=== PATIENT | female | born 1950 | race Caucasian/White ===

== ENCOUNTER 2020-10-23 11:22 | Emergency (ER) | payer MEDICARE, SELFPAY ==
--- NOTE | 2020-10-23 11:35 | ED.SKABFB ---
HPI - Skin/Abscess/Foreign Bdy General Chief complaint: Skin/Abscess/Foreign Body Stated complaint: Boil on Groin Time Seen by Provider: 10/23/20 11:35 Source: patient and RN notes reviewed Mode of arrival: ambulatory Limitations: no limitations History of Present Illness HPI narrative: 70-year-old female presents to the [facility] with complaints of a red warm boil to the right labia. States there was a bump there for 2 to 3 months but the last couple days have become red and painful. Denies any treatment prior to arrival. No fevers. Related Data Home Medications Medication Instructions Recorded Confirmed budesonide-formoterol HFA 160 2 puff INHALATION Q12H 06/09/19 mcg-4.5 mcg/actuation aerosol inhaler cholecalciferol (vitamin D3) 25 1,000 unit PO DAILY tablet 06/09/19 mcg (1,000 unit) tablet cyanocobalamin (vitamin B-12) 500 500 mcg PO DAILY 06/09/19 mcg tablet Allergies Allergy/AdvReac Type Severity Reaction Status Date / Time diclofenac Allergy Unknown Rash Verified 05/13/19 14:17 Penicillins Allergy Unknown Dermatitis Verified 05/13/19 14:16 DICLOFENAC SODIUM Allergy Unknown Uncoded 03/23/14 12:25 Review of Systems Review of Systems: Narrative: CONSTITUTIONAL: Denies fever, chills, or sweats. CARDIOVASCULAR: Denies chest pain, palpitations, or edema. RESPIRATORY: Denies cough or dyspnea. GASTROINTESTINAL: Denies abdominal pain, nausea, vomiting, or diarrhea. SKIN: Denies rash or itching. Raised area right anterior labia MUSCULOSKELETAL: Denies back pain, joint pain, or myalgia. NEUROLOGIC: Denies headache, numbness, or weakness. PSYCHIATRIC: Denies anxiety or depression. All other systems reviewed are negative, except as documented in HPI. [facility] Past Medical History Medical History Age related osteoporosis Chronic low back pain with right-sided sciatica NSIP (nonspecific interstitial pneumonia) Osteoarthritis, multiple sites Primary hypertension Family History Family History Grandparent Family history of thyroid disease Family history of lung cancer, Onset Age: 60 Family history of malignant neoplasm of bone, Onset Age: 70 Family history of malignant neoplasm of uterus, Onset Age: 60 Mother Hypertension, Onset Age: 71 Cerebrovascular accident, Onset Age: 71 Sibling Hypertension Patient's brother is , Onset Age: 45 Family history of alcoholism Family history of hepatitis Family history of emphysema, Onset Age: 55 Father Family history of alcoholism Family history of lung cancer, Onset Age: 52 Comments At the time of my signature, I reviewed and agree with the nursing past medical, surgical, social, and family history. There is no relevant family history pertinent to the patient complaint. Exam Narrative: Exam Narrative: GENERAL: This is a well-nourished, well-developed patient, in no apparent distress. HEAD: normocephalic, atraumatic. EYES: PERRL. Sclera clear/white. Vision is grossly intact. EARS: External ears normal CARDIOVASCULAR: Regular rate and rhythm without murmurs, gallops, or rubs. RESPIRATORY: Clear to auscultation. Breath sounds equal bilaterally. No wheezes, rales, or rhonchi. GASTROINTESTINAL: Abdomen soft, non-tender, nondistended. SKIN: warm, intact with no rash, good texture and turgor. 1.5 cm red fluctuant area right anterior labia area redness extending up to 2-1/2 cm from center. Small scab noted over dried area that was raised and swollen. NEURO: awake, alert, and oriented to person, place and time. There were no obvious focal neurologic abnormalities. EXTREMITIES: No joint tenderness, effusion, or edema noted. Exam chaperoned by Tristan MACIAS : Female genitals images: 1. 1/2 cm fluctuant center with redness surrounding. Course Course Emergency Course: Explained the need for a need
[2020-10-23 11:50] VITALS: BP 168/80; PULSE 109; RESP 20; TEMP 36.3; O2SAT 99
--- NOTE | 2020-10-23 12:01 | PC.NURSE ---
wound culture ordered as wound culture per order provider
== END 2020-10-23 12:08 | disposition home or self-care (01) ==
PROVIDERS: Emergency Provider Nurse Practitioner; PCP Family Medicine
DX: N76.4 Abscess of vulva (principal); N76.2 Acute vulvitis; M19.90 Unspecified osteoarthritis, unspecified site; I10 Essential (primary) hypertension
CPT/HCPCS: 56405; 87070; 87077; 87147; 87181; 87186; 87205; 99213; G0463

== ENCOUNTER 2023-10-06 17:22 | Emergency (ER) | payer MEDICARE, SELFPAY ==
[2023-10-06 17:35] VITALS: BP 147/87; PULSE 86; RESP 16; TEMP 36.8; O2SAT 98
--- NOTE | 2023-10-06 17:53 | ED.URI ---
HPI - URI/Sore Throat General Chief Complaint: Upper Respiratory Infection Stated Complaint: Sore Throat Time Seen by Provider: 10/06/23 17:36 Source: patient and RN notes reviewed Mode of arrival: ambulatory Limitations: no limitations History of Present Illness HPI Narrative: Patient presents today complaining of a 2.5 week history of sore throat and nausea. Denies any additional symptoms to include congestion, rhinorrhea, fever, cough. She took a home COVID test that was negative. Currently rates her pain 5/10 and has been taking Tylenol without relief. States the pain is persistent and is worse at night. Patient has interstitial lung disease and takes CellCept. Related Data Home Medications Medication Instructions Recorded Confirmed cholecalciferol (vitamin D3) 25 1,000 unit PO DAILY 06/09/19 10/06/23 mcg (1,000 unit) tablet (Vitamin D3) cyanocobalamin (vitamin B-12) 500 500 mcg PO DAILY 06/09/19 10/06/23 mcg tablet (Vitamin B-12) timolol maleate 0.5 % once daily 1 drp LEFT EYE Q12H 11/30/22 10/06/23 eye drops mycophenolate mofetil 500 mg 1,500 mg PO Q12H 06/20/23 10/06/23 tablet (CellCept) Allergies Allergy/AdvReac Type Severity Reaction Status Date / Time diclofenac Allergy Unknown Rash Verified 10/06/23 17:25 Penicillins Allergy Unknown Dermatitis Verified 10/06/23 17:25 DICLOFENAC SODIUM Allergy Unknown Unknown Uncoded 10/06/23 17:25 Review of Systems Review of Systems: CONSTITUTIONAL: Denies body aches, fever, chills, or sweats. EYES: Denies visual changes, redness, or discharge. ENT: Denies rhinorrhea, congestion, or otalgia.+ sore throat CARDIOVASCULAR: Denies chest pain, palpitations, or edema. RESPIRATORY: Denies cough or dyspnea. GASTROINTESTINAL: Denies abdominal pain,vomiting, or diarrhea.+ nausea GENITOURINARY: Denies dysuria or hematuria. SKIN: Denies rash, itching, or wounds. MUSCULOSKELETAL: Denies back pain, joint pain, or myalgia. NEUROLOGIC: Denies headache, numbness, tingling, or weakness. PSYCH: Denies depression or anxiety. [facility] Past Medical History Medical History Age related osteoporosis At low risk for fall BMI 28.0-28.9,adult BMI 29.0-29.9,adult Breast cancer screening by mammogram normal mammogram 10/04/2022. Chronic low back pain with right-sided sciatica Colon cancer screening patient reports normal colonoscopy around 2008. Hyperplastic polyp descending colon 01/09/2023 with recheck in 10 years. COVID-19 (~07/15/23) tested positive 07/15/2023 Edema of both lower extremities Glaucoma (increased eye pressure) Hepatic steatosis AST 27, ALT 23 on 05/07/2023. Hyperkalemia (11/20/22) potassium elevated at 5.5 on 11/20/2022. Recheck. repeat potassium level 5.0 on 12/04/2022. Mixed hyperlipidemia (11/20/22) total cholesterol 205, triglycerides 189, HDL 47, LDL 125 on 11/20/2022. Total cholesterol 198, triglycerides 180, HDL 45, LDL 121 on 05/07/2023. NSIP (nonspecific interstitial pneumonia) Osteoarthritis, multiple sites Overweight (BMI 25.0-29.9) Primary hypertension Family History Family History Grandparent Family history of thyroid disease Family history of lung cancer, Onset Age: 60 Family history of malignant neoplasm of bone, Onset Age: 70 Family history of malignant neoplasm of uterus, Onset Age: 60 Mother Hypertension, Onset Age: 71 Cerebrovascular accident, Onset Age: 71 Sibling Hypertension Patient's brother is , Onset Age: 45 Family history of alcoholism Family history of hepatitis Family history of emphysema, Onset Age: 55 Father Family history of alcoholism Family history of lung cancer, Onset Age: 52 Social History Social History Smoking status: Never smoker Alcohol intake: never
== END 2023-10-06 18:15 | disposition home or self-care (01) ==
PROVIDERS: Emergency Provider Nurse Practitioner; PCP Family Medicine
DX: J02.9 Acute pharyngitis, unspecified (principal); M81.0 Age-related osteoporosis without current pathological fracture; H40.9 Unspecified glaucoma; K76.0 Fatty (change of) liver, not elsewhere classified; E78.2 Mixed hyperlipidemia; M15.9 Polyosteoarthritis, unspecified; I10 Essential (primary) hypertension; Z86.16 Personal history of COVID-19
CPT/HCPCS: 87081; 87880; 99213; G0463

== ENCOUNTER 2023-12-28 13:02 | Emergency (ER) | payer MEDICARE, SELFPAY ==
--- NOTE | ~2023-12-28 | XR_ITS ---
XR chest 2V 12/28/2023 13:56 Indication: Cough for one month Procedure: 2 view chest Comparison: 01/04/2009 Findings: Heart size normal. There is right upper lobe opacification, suspicious for pneumonia. Possi ble small left effusion versus pleural thickening. No edema or pneumothorax. There is left shoulder a rthroplasty. Impression: 1: Right upper lobe infiltrates which may represent pneumonia versus atelectasis/scarring. Reviewed, dictated and finalized at location B. Impression: 1: Right upper lobe infiltrates which may represent pneumonia versus atelectasi s/scarring.
[2023-12-28 13:16] VITALS: BP 125/68; PULSE 85; RESP 16; TEMP 37.3; O2SAT 98
--- NOTE | 2023-12-28 13:47 | ED.URI ---
HPI - URI/Sore Throat General Chief Complaint: Upper Respiratory Infection Stated Complaint: Sore Throat Time Seen by Provider: 12/28/23 13:38 Source: patient and RN notes reviewed Mode of arrival: ambulatory Limitations: no limitations History of Present Illness HPI Narrative: 73-year-old female presents with concern of for mouth pain, pain at the roof of her mouth, her tongue. She also reports cough and wheezing. She has history of autoimmune lung disease. She denies fever, aches, chills, sweats. She reports ear fullness MD elicited complaint: cough and sore throat Related Data Home Medications Medication Instructions Recorded Confirmed cholecalciferol (vitamin D3) 25 1,000 unit PO DAILY 06/09/19 12/28/23 mcg (1,000 unit) tablet (Vitamin D3) cyanocobalamin (vitamin B-12) 500 500 mcg PO DAILY 06/09/19 12/28/23 mcg tablet (Vitamin B-12) timolol maleate 0.5 % once daily 1 drp LEFT EYE Q12H 11/30/22 10/06/23 eye drops aspirin 81 mg tablet,delayed mg 12/28/23 release docusate sodium 100 mg capsule mg PO 12/28/23 hydrocodone 5 mg-acetaminophen 325 tablet 12/28/23 mg tablet Allergies Allergy/AdvReac Type Severity Reaction Status Date / Time diclofenac Allergy Unknown Rash Verified 12/28/23 13:11 Penicillins Allergy Unknown Dermatitis Verified 12/28/23 13:11 DICLOFENAC SODIUM Allergy Unknown Unknown Uncoded 12/28/23 13:11 Review of Systems Review of Systems: CONSTITUTIONAL: Denies malaise, chills, sweats, or fever. EYES: Denies visual changes, redness, or discharge. ENT: Denies rhinorrhea, congestion, sinus pain. Reports otalgia and sore throat. CARDIOVASCULAR: Denies chest pain, palpitations, or edema. RESPIRATORY: Reports cough. Denies dyspnea. GASTROINTESTINAL: Denies abdominal pain, nausea, vomiting, diarrhea SKIN: Denies rash or itching. MUSCULOSKELETAL: Denies myalgia. NEUROLOGIC: Denies headache. All systems reviewed & are unremarkable except as noted in HPI and below PMFSH Past Medical History Medical History (Updated 12/28/23 @ 14:24 by Michelle Camara NP) Age related osteoporosis At low risk for fall BMI 28.0-28.9,adult BMI 29.0-29.9,adult Breast cancer screening by mammogram normal mammogram 10/04/2022. Chronic low back pain with right-sided sciatica Colon cancer screening patient reports normal colonoscopy around 2008. Hyperplastic polyp descending colon 01/09/2023 with recheck in 10 years. COVID-19 (~07/15/23) tested positive 07/15/2023 Edema of both lower extremities Glaucoma (increased eye pressure) Hepatic steatosis AST 27, ALT 23 on 05/07/2023. Hyperkalemia (11/20/22) potassium elevated at 5.5 on 11/20/2022. Recheck. repeat potassium level 5.0 on 12/04/2022. Left rotator cuff tear patient had left reverse shoulder arthroplasty 11/21/2023. Mixed hyperlipidemia (11/20/22) total cholesterol 205, triglycerides 189, HDL 47, LDL 125 on 11/20/2022. Total cholesterol 198, triglycerides 180, HDL 45, LDL 121 on 05/07/2023. NSIP (nonspecific interstitial pneumonia) Osteoarthritis, multiple sites Overweight (BMI 25.0-29.9) Primary hypertension Family History Family History Grandparent Family history of thyroid disease Family history of lung cancer, Onset Age: 60 Family history of malignant neoplasm of bone, Onset Age: 70 Family history of malignant neoplasm of uterus, Onset Age: 60 Mother Hypertension, Onset Age: 71 Cerebrovascular accident, Onset Age: 71 Sibling Hypertension Patient's brother is , Onset Age: 45 Family history of alcoholism Family history of hepatitis Family history of emphysema, Onset Age: 55 Father Family history of alcoholism Family history of lung cancer, Onset Age: 52 Social History Social History Smoking status: Never smoker Alcohol intake: never
== END 2023-12-28 14:30 | disposition home or self-care (01) ==
PROVIDERS: Emergency Provider Nurse Practitioner; PCP Family Medicine
DX: J18.9 Pneumonia, unspecified organism (principal); K12.30 Oral mucositis (ulcerative), unspecified; M81.0 Age-related osteoporosis without current pathological fracture; E78.2 Mixed hyperlipidemia; M19.90 Unspecified osteoarthritis, unspecified site; I10 Essential (primary) hypertension; K76.0 Fatty (change of) liver, not elsewhere classified
CPT/HCPCS: 71046; 87081; 87880; 99213; G0463

== ENCOUNTER → 2024-03-25 14:16 | Outpatient (CLI) | payer MEDICARE, SELFPAY ==
--- NOTE | ~2024-03-25 | XR_ITS ---
XR knee LT min 4V 03/25/2024 14:41 Indication: Left knee pain Procedure: 4 views left knee Comparison: No prior studies for comparison. Findings: There is moderate tricompartment osteoarthritis. No fracture or traumatic malalignment. No significant joint effusion. No foreign bodies. Impression: 1: Moderate tricompartment osteoarthritis. Reviewed, dictated and finalized at location B. Impression: 1: Moderate tricompartment osteoarthritis.
== END ==
PROVIDERS: PCP Family Medicine; Visit Provider Family Medicine
DX: M17.12 Unilateral primary osteoarthritis, left knee (principal)
CPT/HCPCS: 73564

== ENCOUNTER 2025-03-20 09:26 | Outpatient (CLI) | payer MEDICARE, SELFPAY ==
--- OUTSIDE RECORDS SUMMARY | 2000-02-23 05:00 | XMS_ITS | Continuity of Care Document ---
Author Organization [facility] Address [address] [place] [address] Phone Care Team Providers Care Public Information Specialist Name Role Phone Jose OD, John Unavailable Unavailable Advance Directives Directive Yes / No Effective Date File Name No Information Encounters Encounter Description Practice Location Reason(s) For Visit Diagnoses Date Provider Providers Copied on Encounter [facility], [address], [place], [place], [id number], [place] tel:[phone] [facility] No Information Aug-0 3-200 0 Jose OD John. [address] , [address], [place], [address], [place]. tel:[phone] Family History Family Member Type Diagnosis Age At Onset No Information Payers Payer name Insurance type Covered democrat ID Authoriza tion(s) No Information Social History Type Description Quantity Date Captured Comments Sex Female Smoking Status No Information Chief Complaint And Reason For Visit No Information Reason For Referral Reason For Referral No Information History Of Present Illness Encounter Date Complaint History Of Prese nt Illness No Information Functional Status Date Functional Assessmen t No Information Instructions Date Instruction Additional Infor mation No Information Assessments Type Assessment Date No Information Patient Care Teams Name Effective Dates (start - stop) Status Members No Information
--- OUTSIDE RECORDS SUMMARY | 2025-03-20 09:32 | XMS_ITS | Encounter Summary ---
Author Organization [facility] Healthcare Address [address] [place] [address] Care Team Providers Care Cargo And Container Inspector Name Role Phone Pop Etienne MD Primary Care Provider [phone] Luisa Kingsley RN Unavailable Unavailabl e Sergio Cortez MD Unavailable [phone] Jonathon Ashraf MD Unavailable [phone] Encounter Details Date Type Department Care Team (Late st Contact Info) Description 02/17/2025 Results Follow-Up [facility] Medical Group Obstetrical Gynecology [address] [place] [address] Sergio Cortez MD [address] [facility] [place] [address] Screening Mammogram Bilateral W Valerio Social History Tobacco Use Types Packs/Day Years Used Date Smoking Tobacco: Never Smokeless Tobacco: Never Alcohol Use Standard Drinks/Week Comments Yes 0 (1 standard drink = 0.6 oz pur e alcohol) AUDIT-C Answer Date Recorded Q1: How often do you have a drink containing alc ohol? Never 11/21/2023 Average Number of Drinks Not on file 024 Frequency of Binge Drinking Not on file 07/2023 Hunger Vital Sign Answer Date Recorded Within the past 12 months, y ou worried that your food would run out before you got the money to buy more. Never true 11/11/19 23 Within the past 12 months, t he food you bought just didn't last and you didn't have money to get more. Never true 11/10/2022 Personal Safety Answer Date Recorded Have you ever been in or are you currently in a harmful physical or emotional relationship or is someone making you feel afraid or unsafe? 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 Gender Identity Not on file Sexual Orientation Not on file documented as of this encounter Plan of Treatment Not on file documented as of this encounter Visit Diagnoses Not on filedocumented in this encounter Care Teams Cargo And Container Inspector Relationship Specialty Start Date End Date Pop Etienne MD [address] [address] PCP - General 11/10/16 Luisa Kingsley RN Registered Nurse Pulmonary Disease 06/05/22 Sergio Cortez MD [address] [address] Consulting Physician Obstetrics and Gynecology 10/04/22 Jonathon Ashraf MD [address] [facility] [address] [place] [address] Consulting Physician Pulmonary Disease 02/03/25 documented as of this encounter
--- OUTSIDE RECORDS SUMMARY | 2025-03-20 09:32 | XMS_ITS | Encounter Summary ---
Author Organization [facility] Address [address] [place] [address] Phone Care Team Providers Care Spray Unit Feeder Name Role Phone Pop Etienne MD Primary Care Provider [phone] Luisa Kingsley RN Unavailable UnavailSergio Collazo MD Unavailable [phone] Jonathon Ashraf MD Unavailable [phone] Encounter Details Date Type Department Care Team (Latest Contact Info) Description 12/28/2023 Orders Only [facility] Scanning, Provider Social History Tobacco Use Types Packs/Day Years [...] making you feel afraid or unsafe? Denies 11/21/2023 Comments No Sex and Gender Information Value Date Recorded Sex Assigned at Not on file Legal Sex Female 11:54 PM MANAGER COMMUNICATION Gender Identity Not on file Sexual Orientation Not on file documented as of this encounter Plan of Treatment Not on file documented as of this encounter Procedures Procedure Name Priority Date/Time Associated Diagnosis Comments SCAN - RADIOLOGY/IMAGING 12/28/2023 documented in this encounter Results * SCAN - RADIOLOGY/IMAGING (12/28/2023) Anatomical Region Laterality Modality Other us Provider Scanning Final Result documented in this encounter Visit Diagnoses Not on filedocumented in this encounter Additional Health Concerns Infection Onset Date Last Indicated Resolved Time COVID: Suspected 07/06/2024 07/06/2024 07/06/2024 1:16 PM MANAGER COMMUNICATION COVID: Suspected 01/25/2025 01/25/2025 01/25/2025 1:09 PM CDT COVID: Suspected 02/03/2025 02/03/2025 02/03/2025 4:41 PM CDT documented as of this encounter Care Teams Spray Unit Feeder Relationship Specialty Start Date End Date Pop Etienne MD [address] [address] PCP - General 11/10/16 Luisa Kingsley RN Registered Nurse Pulmonary Disease 06/05/22 Sergio Cortez MD [facility] [address] [place] [address] Consulting Physician Obstetrics and Gynecology 10/04/22 Jonathon Ashraf MD [address] [facility] [address] IM PULMONARY [place] [address] Consulting Physician Pulmonary Disease 02/03/25 documented as of this encounter
--- OUTSIDE RECORDS SUMMARY | 2025-03-20 09:32 | XMS_ITS | Clinical Summary ---
Author Organization [facility] Care Team Providers Care In Home Nanny Name Role Phone Unavailable Primary Care Provider Unavailabl e Social History Tobacco Use Types Packs/Day Years Used Date Smoking Tobacco: Never Assessed Comments Unknown Sex and Gender Information Value Date Recorded Sex Assigned at Not on file Legal Sex Female 10:42 PM CDT Gender Identity Not on file Sexual Orientation Not on file Plan of Treatment Health Maintenance Due Date Last Done Comments Hepatitis C Virus (HCV) Screening 1950 Cologuard 1997 Colonoscopy 1997 Colorectal Cancer Screening 1997 Immunochemical Fecal Occult Blood 1997 Pneumococcal Immunization (50+ years) (1 of 1 - PCV) 2002 Zoster Immunization (2 of 3) 09/13/2014 07/19/2014 SARS-COV-2 Immunization (3 - season) 2024 05/27/2021, 09/24/2020 Influenza Immunization (#1) 03/23/202503/24, 05/15/2019, 04/30/2018, Additional history exists Respiratory Syncytial Virus (RSV) Immunization (Adult) (1 - 1-dose 75+ series) 2027 DTaP/Tdap/Td Immunization Discontinued 03/01/2018, TdaP Immunization Completed 03/01/2018 Hepatitis B Immunization Aged Out No longer eligible based on patient's age to complete this topic Human Papillomavirus (HPV) Immunization Aged Out No longer eligible based on patient's age to complete this topic Meningococcal Immunization (ACWY) Aged Out No longer eligible based on patient's age to complete this topic Rotavirus Immunization Aged Out No lo nger eligible based on patient's age to complete this topic
--- OUTSIDE RECORDS SUMMARY | 2025-03-20 09:32 | XMS_ITS | Clinical Summary ---
Author Organization [facility] Address [address] [place] [address] Care Team Providers Care Power Sewing Machine Operator Name Role Phone Pop Etienne MD Primary Care Provider [phone] Luisa Kingsley RN Unavailable Unavailabl e Sergio Cortez MD Unavailable [phone] Jonathon Ashraf MD Unavailable [phone] Allergies Active Allergy Reactions Criticality Noted Date Comments Sulfamethoxazole-Trimethoprim Rash Medium 2020 Diclofenac Sodium Dizziness,Rash Medium Penicillins Rash Medium Medications cyanocobalamin (Vitamin B-12) 500 mcg tabletIndicatio ns:Prevention of Vitamin B12 Deficiency Take 1 tablet (500 mcg total) by mouth counter intelligence agent before breakfast Active cholecalciferol (VITAMIN D-3) 5,000 unit tabletIndicatio ns:Vitamin D Deficiency Take 1 tablet (5,000 Units total) by mouth counter intelligence agent before breakfast 0 Active amLODIPine (NORVASC) 5 mg tabletIndicatio ns:Raynaud's Phenomenon,hype rtension Take 1.5 tablets (7.5 mg total) by mouth every evening 3 Active meloxicam (MOBIC) 15 mg tablet Take 1 tablet (15 mg total) by mouth 4 Active dorzolamide-susi oloL (Cosopt) 22.3-6.8 mg/mL ophthalmic solutionIndicat ions:open angle glaucoma Administer 1 drop into the left eye 2 (two) times a day 10 mL 11 4 Active azaTHIOprine (IMURAN) 50 mg tablet TAKE 3 TABLETS(150 MG) BY MOUTH DAILY 270 tablet 1 5 Active clindamycin (CLEOCIN) 300 mg capsuleIndicati ons:Prophylaxis , Surgical TAKE 2 CAPSULES BY MOUTH 1 HOUR PRIOR TO DENTAL PROCEDURE 2 capsule 2 5 Active peg 400-propylene glycol, PF, (SYSTANE ULTRA) 0.4-0.3 % dropperette Administer 1 drop into both eyes 2 (two) times a day as needed (dry / irritated eyes) Active metroNIDAZOLE (METROCREAM) 0.75 % creamIndication s:Acne Rosacea Apply a thin layer to face every night at bedtime 45 g 11 5 Active metroNIDAZOLE (METROCREAM) 0.75 % creamIndication s:Acne Rosacea Apply a thin layer to face every night at bedtime 45 g 11 4 025 Discontinu ed(Reorder ) famotidine (PEPCID) 40 mg tablet Take 1 tablet (40 mg total) by mouth daily 30 tablet 11 5 025 Discontinu ed(No longer taking - Do not display on AVS) Active Problems Problem Noted Date Diagnosed Date High risk medication use 02/27/2025 HTN (hypertension) 11/13/2023 Dry eye syndrome of both eyes 04/20/2022 Assessment & Plan (03/03/2025 3:24 PM CDT): New punctal plugs today (0.4 mm) Assessment & Plan (11/14/2022 11:33 AM CDT): Cont ats prn, notices significant improvement now with pplugs off PGA. Assessment & Plan (08/21/2022 7:17 PM MOBILITY SCOOTER REPAIRER): Increase ATs (rec pfats, vials) q2hr, lubricating radhames qhs Assessment & Plan (06/01/2022 1:16 PM MOBILITY SCOOTER REPAIRER): rec pfats prn Assessment & Plan (04/20/2022 12:12 PM CDT): Start PFATS TID+ both eyes (OU), if ni at f/u consider Xiidra Primary open angle glaucoma (POAG) of both eyes, mild stage 10/18/2021 Overview (04/12/2023): Normal RNFL thickness both eyes (OU) (02/13/22) Assessment & Plan (06/23/2024 5:06 PM MOBILITY SCOOTER REPAIRER): IOPs adequate, CPM - Cosopt BID OS Assessment & Plan (01/07/2024 4:50 PM CDT): IOP adequate, CPM - Cosopt BID OS Assessment & Plan (04/12/2023 5:31 PM CDT): IOPs adequate for optic nerve (ON) ,visual field (VF), RNFL, CPM Assessment & Plan (11/14/2022 11:35 AM CDT): Doing better off PGA, less irritation. Due to insurance switch to Timolol b.i.d. OS to see if this is covered by her insurance. Started on latanoprost 2020 due to increased intraocular pressure (IOP) left eye (OS) (24) and possible inferior defect on visual field (VF). Repeat testing next visit. Assessment & Plan (06/01/2022 1:17 PM MOBILITY SCOOTER REPAIRER): intraocular pressure (IOP) 24, discontinue PGA d/t orbitopathy. Normal RNFL thickness both eyes (OU) (09/2021). Start Timolol qam left eye (OS). Goal intraocular pressure (IOP) high teens. Assessment & Plan (12/21/2021 2:10 PM CDT): POAG OU Excellent response to Lumigan Patient still notes some stinging with application Start art tears 2-4 times a day Continue Bimatoprost every night. Probably will need a prior authorization. Consider brimonidine or brinzolamide if cannot get prior auth approved Assessment & Plan (10/18/2021 10:42 AM CDT): Stable IOP 11.5/ 13 OCT nerve normal OU Return in 6 months for HVF 24-2 Continue with latanoprost OU every night Lattice degeneration of left retina 08/18/2021 Assessment & Plan (03/03/2025 3:25 PM CDT): Patient was educated on the signs/sx retinal detachment, including flashes, floaters, and/or curtain over the vision. Recommend patient RTC immediately with the onset of any of these symptoms. Assessment & Plan (06/23/2024 5:07 PM MOBILITY SCOOTER REPAIRER): Rtc with fl/floaters, annual DFEx Assessment & Plan (08/18/2021 10:27 AM MOBILITY SCOOTER REPAIRER): Pt ed. Open angle with borderline findings, low risk, b ilateral 08/17/2020 Overview (04/20/2022): H/o retained lens material left eye (OS) with subsequent intraocular pressure (IOP) spike 40 Assessment & Plan (03/03/2025 3:25 PM CDT): Wedge of thinning left eye (OS), CPM Assessment & Plan (09/13/2023 11:07 AM MOBILITY SCOOTER REPAIRER): Great intraocular pressure (IOP) response since switching to Cosopt - Cont BID OS Assessment & Plan (06/21/2023 1:56 PM MOBILITY SCOOTER REPAIRER): Intraocular pressure (IOP) higher today (24) on one class, switch to Cosopt BID OS Assessment & Plan (08/21/2022 7:17 PM MOBILITY SCOOTER REPAIRER): CPM Assessment & Plan (04/20/2022 1:19 PM CDT): IOPs adeuayte,but experiencing adverse rxn to Rainaigan (reports having this also on Xal) worse over the last few weeks, will trial off drops for a few weeks, if intraocular pressure (IOP) much > 20, consider adding alternate class Assessment & Plan (12/06/2021 2:36 PM CDT): POAG OU Pigment on endothelium OS Reaction to latanoprost?? Discontinue Latanoprost OU Start Lumigan OU Return in 2 week for cornea check Preservative free tears 2-4 times a day Genteal gel at night Assessment & Plan (08/18/2021 10:26 AM MOBILITY SCOOTER REPAIRER): Intra-ocular pressure is low at goal on latanoprost. Continue q.h.s. both eyes (OU). She has an upcoming appointment with testing and to see Dr. Blankenship Assessment & Plan (04/20/2021 11:39 AM CDT): Return for intraocular pressure (IOP) check intraocular pressure (IOP) right eye (OD): 14 left eye (OS): 17 Nice response to Latanoprost Continue latanoprost at bedtime (QHS) Return in 6 months for repeat OCT and intraocular pressure (IOP) check. Assessment & Plan (02/08/2021 12:06 PM CDT): Intraocular pressure (IOP) elevated both eyes (OU) right eye (OD): 17 left eye (OS) : 24 Inferior arcuate defect both eyes (OU) with visual field (VF) today Started patient on Latanoprost both eyes (OU) Recheck intraocular pressure (IOP) in 2 months Assessment & Plan (08/17/2020 1:14 PM MOBILITY SCOOTER REPAIRER): Moderate CDRs with slight asymmetry. intraocular pressure normal range (IOP) left eye (OS)>OD. Normal RNFL thickness both eyes (OU). No FHx. Pseudophakia of both eyes 08/12/2019 Assessment & Plan (03/03/2025 3:24 PM CDT): Patient was educated on the intraocular lens (IOL) status. Follow. Assessment & Plan (06/23/2024 5:08 PM MOBILITY SCOOTER REPAIRER): Patient was educated on the intraocular lens (IOL) status. Follow. Assessment & Plan (04/12/2023 5:32 PM CDT): Patient was educated on the intraocular lens (IOL) status. Follow. Assessment & Plan (11/14/2022 11:33 AM CDT): Hx of retained lens fragment OS, s/p PPV. 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 Assessment & Plan (08/18/2021 10:28 AM MOBILITY SCOOTER REPAIRER): Pt ed on intraocular lens (IOL) status. Patient is very happy with mono vision. Follow. Assessment & Plan (08/17/2020 11:21 AM MOBILITY SCOOTER REPAIRER): status post (s/p) monovision correction, doing well Assessment & Plan (08/12/2019 3:00 PM MOBILITY SCOOTER REPAIRER): S/p CE/IOL OS. Hx of retained lens fragment OS, s/p PPV. NSIP (nonspecific interstitial pneumonia) 2018 Vaginal atrophy 04/03/2018 Osteoporosis 09/03/2017 History of vitrectomy 08/30/2016 Overweight with body mass index (BMI) 25.0-29.9 08/28/2016 Posterior vitreous detachment 10/21/2015 Shortness of breath 03/22/2015 Idiopathic interstitial pneumonia 03/22/2015 Compound nevus 10/14/2014 Cervical pain (neck) 01/29/2013 Chronic pain 01/07/2013 Osteoarthritis of cervical spine 01/07/2013 Bronchiectasis without complication Asthma ILD (interstitial lung disease) Resolved Problems Problem Noted Date Diagnosed Date Resolved Date SPK (superficial punctate keratitis), left 08/21/2024 03/03/2025 Complete tear of left rotator cuff 11/21/2023 02/03/2025 Tear of left rotator cuff 10/08/2023 Lab test positive for detect ion of COVID-19 virus 11/11/2021 02/03/2025 Optic nerve cupping of both eyes 01/14/2021 02/03/2025 Assessment & Plan (01/14/2021 9:08 AM CDT): Optic nerve head cupping Elevated intraocular pressure (IOP) in left eye (OS) Return for glaucoma evaluation Glaucoma suspect 01/13/2021 12/21/2021 Assessment & Plan (02/17/2021 9:35 AM CDT): - Reassuring Workman/RNFL previously Complex surgical course and on inhaled steroids so multiple reasons for higher IOP. With Xal IOP much improved. Recommend IOP < 21mmHg. If needs additional agents next step SLT F/U with Dr. Blankenship for glc monitoring - Q6 mo IOP check and yearly VF/OCT Assessment & Plan (01/13/2021 10:58 AM CDT): Glaucoma Suspect Asymmetry in intraocular pressure (IOP) right eye (OD): 13 left eye (OS) 22 Thick corneas Normal OCT today RTC for Galindo visual field (HVF) 24-2, gonioscopy, and repeat intraocular pressure (IOP), and DFE Corneal foreign body with re sidual material, left, subsequent encounter 08/17/2020 02/03/2025 Assessment & Plan (02/17/2021 9:33 AM CDT): - Referred to eval suture OS from prior Phaco (2005, Dr. Abbott) - Suture removed without complication Gel tears X 1 week Assessment & Plan (02/08/2021 12:09 PM CDT): Patient has suture from cataract surgery protruding from cornea. Cataract surgery was done with Dr. Major in 2016 This is the second episode of pain/FB sensation in the last month Refer patient to Dr. Dailey to see if suture can be removed. Started patient on latanoprost today for elevated IOP's Assessment & Plan (01/14/2021 9:06 AM CDT): Patient presents with raised epithelium and foreign body sensation. Corneal stain is in the area where previous corneal sutures were applied during cataract surgery and in the area where Dr. Ivory noted a previous foreign body 5 months ago. Patient may have entrapped suture material embedded in the cornea. Attempted to remove material in cornea today. Will recheck on follow up visit. Assessment & Plan (08/17/2020 11:31 AM MOBILITY SCOOTER REPAIRER): Removed small embedded foreign body (FB) superior temporal, near limbus, some residual staining. Acute conjunctivitis of left eye 08/12/2019 08/17/2020 Assessment & Plan (08/12/2019 2:59 PM MOBILITY SCOOTER REPAIRER): Increase use of ATs. Call with any worsening symptoms. Seborrheic keratosis, inflamed 05/30/2017 02/03/2025 Shoulder pain 11/23/2016 02/03/2025 Status post cervical spinal fusion 11/16/2016 02/03/2025 Pain of upper extremity 11/16/201601/20 Pseudophakia 08/30/2016 02/03/2025 Idiopathic osteoporosis 06/20/201601/20 Seborrheic keratoses 05/24/2016 025 Sebaceous cyst 05/24/2016 02/03/2025 Purpura 05/24/2016 02/03/2025 Cough 05/01/2016 02/03/2025 Retained lens matter in vitreous 03/21/2016 02/03/2025 Nuclear sclerotic cataract 10/21/2015 1 08/24/2023 Osteoarthritis of cervical s pine without myelopathy 11/06/2013 02/03/2025 Surgical follow-up care 06/10/201301/20 Rosacea 04/16/2013 02/03/2025 Lentigo 04/16/2013 02/03/2025 Migraine headache 01/07/2013 02/03/2025 Nail abnormalities 11/19/2012 Headache(784.0) 09/12/2012 02/03/2025 Pain in extremity 09/12/2012 02/03/2025 Encounter for preventive health examination 12/15/2008 02/03/2025 Encounters Date Type Department Care Team Description 03/09/2025 Telephone [facility] Medicine Pulmonary [address] [facility] [address]th [place] [address] [place] [address] Guerline Power, RN 03/06/2025 2:05 PM CDT Lab [facility] ([facility]) [address] [place] [address] ILD (interstitial lung disease) (HCC); High risk medication use 03/06/2025 12:23 PM CDT - 03/06/2025 11:59 PM CDT Hospital Encounter [facility] Medicine Pulmonary [facility] [address] [place] [address] ILD (interstitial lung disease) (HCC) Discharge Disposition: Discharge to home or self care 03/06/2025 Telephone [facility] Medicine Pulmonary [facility] 8th [place] [address] [place] [address] Guerline Power, RN 03/04/2025 Telephone [facility] Medicine Pulmonary [address] [place] [address] 8th [place] [address] [place] [address] Guerline Power, RN 03/03/2025 2:30 PM CDT Office Visit [facility] Medicine Ophthalmology [address] [facility] [address] [facility], [address] [facility] [place] [address] Paz Ivory, OD Pseudophakia of both eyes (Primary Dx); Dry eye syndrome of both eyes; Lattice degeneration of left retina; Open angle with borderline findings, low risk, bilateral 03/03/2025 2:10 PM CDT Imaging Exam [facility] Medicine Ophthalmology [facility] [address] [address] Open angle with borderline findings, low risk, bilateral; Encounter for observation for other suspected diseases and conditions ruled out 02/27/2025 10:15 AM CDT Office Visit [facility] Medicine Pulmonary [facility] 8th [place] [address] [place] [address] Jonathon Ashraf MD ILD (interstitial lung disease) (HCC) (Primary Dx); High risk medication use; Shortness of breath; Pneumonia of left lower lobe due to infectious organism 02/27/2025 9:00 AM CDT - 02/27/2025 11:59 PM CDT Hospital Encounter [facility] Medicine Pulmonary [address] [facility] [address] [place] [address] NSIP (nonspecific interstitial pneumonia) (HCC); Shortness of breath; High risk medication use Discharge Disposition: Discharge to home or self care 02/17/2025 Results Follow-Up [facility] Obstetrical Gynecology [address] [facility] [address] [place] [address] Sergio Cortez MD Screening Mammogram Bilateral W Valerio 02/16/2025 4:30 PM CDT - 02/16/2025 11:59 PM CDT Hospital Encounter [facility] Medical Office Bldg 1 [facility] [address] [facility] [address] [place] [address] Screening mammogram, encounter for Discharge Disposition: Discharge to home or self care 02/10/2025 [facility] [address] [facility] Advanced Medicine 8th [place] [address] [place] [address] Guerline Power, RN 02/09/2025 Telephone [facility] Medicine Pulmonary [address] [facility] 8th [place] [address] [place] [address] Guerline Power, RN 02/09/2025 [facility] [address] [facility] [address] [place] [address] Jonathon Ashraf MD 02/06/2025 10:22 AM CDT - 02/06/2025 11:59 PM CDT Hospital Encounter [facility] ([facility] [address] [place] [address] Jonathon Ashraf MD Shortness of breath; ILD (interstitial lung disease) (HCC) Discharge Disposition: Discharge to home or self care 02/04/2025 [facility] [address] [facility] Advanced Medicine 8th [place] [address] [place] [address] Guerline Power RN 02/03/2025 12:03 PM CDT - 02/03/2025 11:59 PM CDT Hospital Encounter [address] [address] Bronchiectasis with acute lower respiratory infection (HCC) Discharge Disposition: Discharge to home or self care 02/03/2025 11:00 AM CDT Office Visit [facility] Pulmonary [address] [facility] Advanced Medicine 8th [place] [address] [place] [address] Cecy Tavarez NP Bronchiectasis with acute lower respiratory infection (HCC) (Primary Dx); Interstitial lung disease (HCC); Age-related osteoporosis without current pathological fracture; High risk medication use; Immunization counseling; Poor appetite; Physical deconditioning 02/03/2025 10:19 AM CDT - 02/03/2025 11:59 PM CDT Hospital Encounter [facility] Pulmonary [address] [facility] [address] [place] [address] Shortness of breath; Idiopathic interstitial pneumonia (HCC) Discharge Disposition: Discharge to home or self care 02/03/2025 10:06 AM CDT - 02/03/2025 11:59 PM CDT Hospital Encounter [facility] [address] [place] [address] Shortness of breath; Idiopathic interstitial pneumonia (HCC) Discharge Disposition: Discharge to home or self care 02/02/2025 Telephone [facility] Pulmonary [address] [facility] Advanced Medicine 8th [place] [address] [place] [address] Guerline Power, RN 02/02/2025 Telephone [facility] Pulmonary [address] [facility] [address] [place] [address] [phone] Jonathon Ashraf MD 02/02/2025 [facility] [address] [facility] Advanced Medicine 8th [place] [address] [place] [address] Guerline Power, RN 01/28/2025 Orders Only [facility] Ophthalmology [address] [facility] 6th Floor, [address] [facility] [place] [address] Paz Ivory, OD Open angle with borderline findings, low risk, bilateral (Primary Dx); Encounter for observation for other suspected diseases and conditions ruled out 01/25/2025 1:27 PM CDT - 01/25/2025 2:29 PM CDT Emergency [facility] Emergency Department [address] [address] Acute cough (Primary Dx); Other fatigue; Sore throat Discharge Disposition: Discharge to home or self care 01/22/2025 8:35 AM CDT - 01/22/2025 11:59 PM CDT Hospital Encounter [facility] Di[facility] Imaging [address] [place] [address] Thumb pain, right Discharge Disposition: Discharge to home or self care 01/22/2025 8:30 AM CDT Office Visit [facility] Hand Surgery [address] [facility] [address] [place] [phone] Bren Clark MD Thumb pain, right (Primary Dx) 01/14/2025 Orders Only [facility] Dermatology [address] [place] [address] [address] [place] [address] Annalisa Evans MD Lentigines (Primary Dx) 01/13/2025 10:00 AM CDT Clinical Support [facility] Dermatology [address] [place] [address] [address] [place] [address] Encounter for cosmetic procedure (Primary Dx) 01/06/2025 9:51 AM CDT - 01/06/2025 11:59 PM CDT Hospital Encounter [facility] Radiology at [facility] [address] [place] [address] Status post orthopedic surgery, follow-up exam Discharge Disposition: Discharge to home or self care 01/06/2025 9:50 AM CDT Office Visit [facility] Orthopaedic Surgery [address] [facility] 1st Floor [address] [place] [address] Boy Denise MD Status post orthopedic surgery, follow-up exam (Primary Dx); Tear of left rotator cuff, unspecified tear extent, unspecified whether traumatic from Last 3 Months Immunizations Immunization Administration Dates Next Due Flucelvax Influenza Quad 05/06/2017 Hep A, Adult 03/18/2003,09/11/2002 Influenza, Quadrivalent, Hig h Dose, Preservative Free, Intrr 04/20/2020 Influenza, Trivalent, Adjuvanted, Intramuscular 05/15/2019 Influenza, Trivalent, High D ose, Split, Preservative Free, Intramuscular 04/03/2024,04/30/2018 Pneumococcal Conjugate PCV 13 08/30/2015 Pneumococcal Polysaccharide PPV23 03/11/2012 RSV Vaccine, Pref, Recombina nt, Subunit, Adjuvanted, PF, IM (Arexvy) 07/09/2023 Td, adsorbed 09/11/2002 Tdap 03/01/2018 ZOSTER LIVE 07/19/2014 Surgical History Surgery Date Site/Laterality Comments NEUROPLASTY / TRANSPOSITION MEDIAN NERVE AT CARPAL TUNNEL Neuroplasty Decompression Median Nerve At Carpal Tunnel - (Added by TW Conv) TOE SURGERY Hammertoe Operation (Each Toe) - (Added by TW Conv) EYE SURGERY Left vitrectomy CATARACT EXTRACTION W/ INTRAOCULAR LENS IMPLANT 01/14/2016 Right CEIOL OD / 1st eye with femtosecond LAS for distance correction (Grueloch / Yom) ROTATOR CUFF REPAIR 07/23/2016 - 07/22/2017 Right CARPAL TUNNEL RELEASE 07/23/2003 - 07/22/2004 Bilateral 2009 CERVICAL FUSION 07/23/2012 - 07/22/2013 COLONOSCOPY KNEE ARTHROSCOPY Right CATARACT EXTRACTION W/ INTRAOCULAR LENS IMPLANT 03/17/2016 Left CEIOL OS / 2nd eye with femtosecond LAS, anterior vitrectomy, and sulcus lens implantation for near correction ([place]uloch / Green) LENSECTOMY PARS PLANA 03/21/2016 Left 23G PPV OS + LenSx + AFx for retained lens fragment (Mathur / Hrisomalos) Medical History Medical History Date Comments Other interstitial lung dise ases of childhood Interstitial Lung Disease Of Childhood - (Added by TW Conv) Covid-19 Hypertension Interstitial lung disease (HCC) Mixed connective tissue disease Raynaud's disease NSIP (nonspecific interstiti al pneumonia) ([facility]) 08/26/2018 Corneal foreign body with re sidual material, left, subsequent encounter 08/17/2020 Cough 05/01/2016 Encounter for preventive hea lt examination 12/15/2008 Status post cervical spinal fusion 11/16/2016 Seborrheic keratoses 05/24/2016 Seborrheic keratosis, inflamed 05/30/2017 Rosacea 04/16/2013 Sebaceous cyst 05/24/2016 Shortness of breath 03/22/2015 Nail abnormalities 11/19/2012 Headache(784.0) 09/12/2012 Pain in extremity 09/12/2012 Pain of upper extremity 11/16/2016 Lentigo 04/16/2013 Migraine headache 01/07/2013 Osteoarthritis of cervical s pine without myelopathy 11/06/2013 Purpura 05/24/2016 Retained lens matter in vitreous 03/21/2016 Surgical follow-up care 06/10/2013 Idiopathic interstitial pneumonia 03/22/2015 Idiopathic osteoporosis 06/20/2016 Shoulder pain 11/23/2016 Optic nerve cupping of both eyes 01/14/2021 Lab test positive for detect ion of COVID-19 virus 11/11/2021 Tear of left rotator cuff 10/08/2023 Complete tear of left rotator cuff 11/21/2023 Pseudophakia, both eyes Monovisi on IOL (OD Distance, OS Near) - Dr. Abbott Hypertrichosis of both eyelids Dry eye syndrome, bilateral Optic cupping, bilateral C/D rat io OU (0.6) Primary open angle glaucoma (POAG) of both eyes, mild stage Follows w/ Dr. Ivory SPK (superficial punctate ke ratitis), left 08/21/2024 If recurs can try changing glc drop Family History Medical History Relation Name Comments Alcohol abuse Brother Family history of alcoholism - (Added by TW Conv) Alcohol abuse Father Family history of alcoholism - (Added by TW Conv) Cancer Father Family history of malignant neoplasm - (Added by TW Conv) Stroke Father Family history of cerebrovascular accident - (Added by TW Conv) Hypertension Mother Family history of hypertension - (Added by TW Conv) Stroke Mother Family history of cerebrovascular accident - (Added by TW Conv) Hip fracture Other PGM Alcohol abuse Sister Family history of alcoholism - (Added by TW Conv) Breast cancer Neg Hx Broken bones Neg Hx Kyphosis Neg Hx Osteoporosis Neg Hx Ovarian cancer Neg Hx Scoliosis Neg Hx Relation Name Status Comments Brother Father Mother Other PGM Sister Social History Tobacco Use Types Packs/Day Years Used Date Smoking Tobacco: Never Smokeless Tobacco: Never Tobacco Cessation:Counseling Given: Not Answered Alcohol Use Standard Drinks/Week Comments Yes 0 [...] on file Legal Sex Female 11:54 PM MOBILITY SCOOTER REPAIRER Gender Identity Not on file Sexual Orientation Not on file Obstetrics History Para Term AB IAB SAB Ectopic Multiple Livin g Live Births 2 2 2 Date Outcome GA Total Labor Labor/2nd/3rd Weight Sex Type Anes PTL Shazia A1 A5 Name Clin Term Term Comments 07/14/45 Last Filed Vital Signs Vital Sign Reading Time Taken Comments Blood Pressure 123/77 02/27/2025 9:50 AM CDT Pulse 85 02/27/2025 9:50 AM CDT Temperature 36.6 C (97.9 F) 02/27/2025 9:50 AM CDT Respiratory Rate 18 02/27/2025 9:50 AM CDT Oxygen Saturation 97% 02/27/2025 9:50 AM CDT Inhaled Oxygen Concentration - - Weight 75.3 kg (166 lb) 02/27/2025 9:50 AM CDT Height 162.6 cm (5' 4) 02/27/2025 9:50 AM CDT Body Mass Index 28.49 02/27/2025 9:50 AM CDT Plan of Treatment Health Maintenance Due Date Last Done Comments Colon Cancer Screening-Colonoscopy 1950 Depression Screening 1950 Hepatitis C Screening 1950 Hepatitis B Screening 1970 Zoster Vaccine (1 of 2) 09/13/2014 07/19/2014 Pneumococcal vaccine 65+ (3 of 3 - PCV20 or PCV21) 03/11/2017 08/30/2015, 03/11/2012 Covid-19 Vaccine (3 - 2023-2 5 season) 2024 05/27/2021, 09/24/2020 Well Visit 65+ 08/10/2024 08/10/2023, 05/24, 06/10/2021 Fall Risk Assessment 11/20/2024 11/21/2023 Influenza Vaccine (#1) 2025 , 04/20/2020, 05/15/2019, Additional history exists Breast Cancer Screening-Mammogram 02/16/2026 02/16/2025, 10/24/2023, 10/04/2022, Additional history exists Osteoporosis Screening-Bone Density Scan 12/01/2026 12/01/2024, 11/19/2023, 10/02/2022, Additional history exists DTaP/Tdap/Td Vaccine (2 - Td or Tdap) 03/01/2028 03/01/2018, 09/11/2002 Medical Devices Implanted Type Area Hearing Instrument Specialist Device Identifier Shelf Expiration Date Model / Serial / Lot Cervical Fusion Neck [employer] Tornier Aequalis Perform 15mm Press Fit Long Post Shoulder [id number] - [id number] Implanted:Qty: 1 on 11/21/2023 at [facility] Left: Shoulder [employer] 06/04/2028 [id number] / [id number] / [employer] Tornier Aequalis Perform 25mm Lateralize Augment Reverse Shoulder [id number] - [id number] Implanted:Qty: 1 on 11/21/2023 at [facility] Left: Shoulder [employer] 09/16/2028 [id number] / [id number] / [employer] Tornier Aequalis Perform 36mm Reverse Shoulder Standard Sphere [id number] - [id number] Implanted:Qty: 1 on 11/21/2023 at [facility] Left: Shoulder [employer] 09/17/2028 [id number] / [id number] / [employer] Tray Stem Humeral Shoulder Reverse Long Size 2 Plus Perform [id number] - [id number] Implanted:Qty: 1 on 11/21/2023 at [facility] Left: Shoulder [employer] 08/05/2028 [id number] / [id number] / [employer] Insert Humeral 10 Degree Reverse Size 1/2 +0 Perform 36mm Combination [id number] - [id number] Implanted:Qty: 1 on 11/21/2023 at [facility] Left: Shoulder [employer] 01/17/2028 [id number] / [id number] / [employer] Aequalis Perform Reversed 5mm 38mm Peripheral Glenoid Screw [id number] - [id number] Implanted:Qty: 1 on 11/21/2023 at [facility] Left: Shoulder [employer] [id number] / / [employer] Aequalis Perform Reversed 5mm 26mm Peripheral Glenoid Screw [id number] - [id number] Implanted:Qty: 1 on 11/21/2023 at [facility] Left: Shoulder [employer] [id number] / / Procedures Procedure Name Priority Date/Time Associated Diagnosis Comments EGFR Routine 03/06/2025 1:56 PM CDT ILD (interstitial lung disease) (HCC) High risk medication use BASIC METABOLIC PANEL Routine 03/06/2025 1:56 PM CDT ILD (interstitial lung disease) (HCC) High risk medication use PULMONARY FUNCTION TEST (PFT) Routine 03/06/2025 1:20 PM CDT ILD (interstitial lung disease) (HCC) COMPREHENSIVE METABOLIC PANEL Routine 03/04/2025 2:38 PM CDT ILD (interstitial lung disease) (HCC) High risk medication use OCT, RETINA - OU - BOTH EYES Routine 03/03/2025 2:09 PM CDT Open angle with borderline findings, low risk, bilateral Encounter for observation for other suspected diseases and conditions ruled out OCT, OPTIC NERVE - OU - BOTH EYES Routine 03/03/2025 2:09 PM CDT Open angle with borderline findings, low risk, bilateral COMPREHENSIVE METABOLIC PANEL Routine 03/03/2025 11:00 AM CDT NSIP (nonspecific interstitial pneumonia) (HCC) Pulmonary fibrosis High risk medication use CBC WITH AUTO DIFFERENTIAL Routine 03/03/2025 11:00 AM CDT NSIP (nonspecific interstitial pneumonia) (HCC) Pulmonary fibrosis High risk medication use PULMONARY FUNCTION TEST (PFT) Routine 02/27/2025 9:38 AM CDT NSIP (nonspecific interstitial pneumonia) (HCC) Shortness of breath High risk medication use SCREENING MAMMOGRAM BILATERAL W VALERIO Schedule Routine, Read Routine (OP Routine) 02/16/2025 4:52 PM CDT Screening mammogram, encounter for CT CHEST HIGH RESOLUTION WO CONTRAST Schedule Routine, Read Routine (OP Routine) 02/06/2025 11:20 AM CDT Shortness of breath ILD (interstitial lung disease) (HCC) RESPIRATORY PATHOGEN PANEL STAT 02/03/2025 2:31 PM CDT Bronchiectasis with acute lower respiratory infection (HCC) PULMONARY FUNCTION TEST (PFT) Routine 02/03/2025 10:33 AM CDT Shortness of breath Idiopathic interstitial pneumonia (HCC) XR CHEST PA LATERAL 2 VIEWS Routine 02/03/2025 10:13 AM CDT Shortness of breath Idiopathic interstitial pneumonia (HCC) INFLUENZA A/B, RSV, AND COVID-19 PCR STAT 01/25/2025 12:15 PM CDT XR FINGER THUMB RIGHT Schedule Routine, Read Routine (OP Routine) 01/22/2025 8:43 AM CDT Thumb pain, right OH INJECTION 1 TENDON SHEATH/LIGAMENT APONEUROSIS Routine 01/22/2025 8:30 AM CDT Thumb pain, right COMPREHENSIVE METABOLIC PANEL Routine 01/21/2025 9:32 AM CDT NSIP (nonspecific interstitial pneumonia) (HCC) Pulmonary fibrosis (HCC) High risk medication use CBC WITH AUTO DIFFERENTIAL Routine 01/21/2025 9:31 AM CDT NSIP (nonspecific interstitial pneumonia) (HCC) Pulmonary fibrosis (HCC) High risk medication use XR SHOULDER LEFT 2 OR MORE VIEWS Schedule Routine, Read Routine (OP Routine) 01/06/2025 9:58 AM CDT Status post orthopedic surgery, follow-up exam DEXA TBS AXIAL SKELETON BONE DENSITY 1 OR MORE SITES Schedule Routine, Read Routine (OP Routine) 12/01/2024 1:21 PM CDT Age-related osteoporosis without current pathological fracture from Last 3 Months or Most Recently Relevant to Health Maintenance Results * eGFR (03/06/2025 1:56 PM CDT) eGFR >90 >=60 mL/min/1. 73 m2 Comment: Interpretive Data Reference Interval Normal >/= 90 mL/min/1.73m2 Mildly decreased* 60 - 89 mL/min/1.73m2 Mildly to moderately decreased 45 - 59 mL/min/1.73m2 Moderately to severely decreased 30 - 44 mL/min/1.73m2 Severely decreased 15 - 29 mL/min/1.73m2 Kidney Failure < 15 mL/min/1.73m2 *Relative to young adult level Estimated glomerular filtration rate is determined by the 2020 CKD-EPI equation recommended by the National Kid[employer] (A Unifying Approach to GFR Estimation: Recommendations of the NKF-ASK Task Force on Reassessing the Inclusion of Race in Diagnosing Kidney Disease, JASN 2020). The CKD-EPI equation should not be used for patients with unstable renal function and has not been validated in children and those over 70. Current interpretive data was last reviewed 2021. Blood 03/06/2025 1:56 PM CDT 03/06/2025 2:46 PM CDT Jonathon Ashraf MD LAB BLOOD ORDERABLES Final Res ult Performing Organization Address [facility] Co de Phone Number [facility] Department [place] [address] * Basic metabolic panel (03/06/2025 1:56 PM CDT) Pathologist [facility] Sodium 138 135 - 145 mmol/L Potassium, pl 4.2 3.3 - 4.9 mmol/L [facility] Chloride 102 97 - 110 mmol/L [facility] CO2 26 22 - 32 mmol/L [facility] Anion gap 10 2 - 15 mmol/L [facility] BUN 16 6 - 25 mg/dL [facility] Creatinine 0.62 0.60 - 1.10 mg/dL [facility] Glucose 82 70 - 199 mg/dL [facility] Comment: Interpretive Data Fasting glucose >/= 126 mg/dl is diagnostic for diabetes. Fasting is defined as no caloric intake for at least 8 hours. Fasting glucose between 100 mg/dl to 125 mg/dl is diagnostic of prediabetes. In a patient with classic symptoms of hyperglycemia or hyperglycemic crisis, a random glucose >/= 200 mg/dl is diagnostic for diabetes. In the absence of unequivocal hyperglycemia, results should be confirmed by repeat testing. The classification and Diagnosis of Diabetes Diabetes Care 2021; 46: S19-S40. Current interpretive data was last revised 2022. Calcium 9.7 8.5 - 10.3 mg/dL [facility] Blood 03/06/2025 1:56 PM CDT 03/06/2025 2:40 PM CDT Jonathon Ashraf MD LAB BLOOD ORDERABLES Final Res ult Performing Organization Address [facility] Co de Phone Number [facility] Department [place] [address] * Pulmonary Function Test - (03/06/2025 1:20 PM CDT) Pathologist [facility] FIO2 % 15.00 % [facility] PaO2 59.0 mmHg [facility] PaCO2 35.0 mmHg [facility] pH 7.45 [facility] A-aDO2 POC 4.0 mmHg [facility] METHGB % 0.2 % [facility] COHb POC 1.5 % [facility] HCO3 24.3 mEq/L [facility] Anatomical Region Laterality Modality PFT 03/06/2025 12:5 0 PM CDT Narrative 03/06/2025 4:19 PM CDT Table formatting from the original result was not included. [facility] Division of Pulmonary & Critical Care Medicine [address] [place] [address]; [place] 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1950 Diagnosis: ILD TIME FiO2 SpO2 HR LEDY BP ADDED FiO2 COMMENTS Rest: 0.21 99 62 0 126/70 Breathing 15% Oxygen: Draw ABG after 20 minutes or when SpO2 drops below 85% 2 0.15 95 63 0 4 0.15 93 63 0 6 0.15 96 65 0 8 0.15 97 65 0 125/76 10 0.15 96 64 0 12 0.15 94 65 0 14 0.15 93 63 0 16 0.15 91 65 0 18 0.15 95 67 0 20 0.15 94 65 0 Recovery: 97 65 0 110/75 97 66 0 *Ledy rate of perceived exertion (1-10 dyspnea scale) Ari, CHEST 2003; 123:1408 HAST Test Summary: Comments: Interpretation: Breathing room air, SpO2 is normal at rest and while breathing a gas mixture simulating an altitude of approximately 5,000-10,000 feet (FiO2 = 0.15) SpO2 (falls but remains normoxemic and acceptable). On this basis, SpO2 is adequate at rest breathing room air at sea level and during air travel. Recommendation: On the basis this data, supplemental oxygen use during commercial jet travel or at altitude is not required . Denys Castaneda M.D. PFT performed at:->[facility] Adult PFT Lab- [facility]-8D Procedure:->High Altitude Pulmonary Function Test Interpretation ARTERIAL BLOOD GAS: The pH and pCO2 are normal. The arterial pO2 is below the lower limit of normal for the patient's age at rest. O2 saturation measured by oximetry is adequate at rest. Impression: There is no impairment of gas exchange at rest by ABG. Oxygen levels are adequate at 15% FiO2. The attending pulmonary physician certifies a physician presence in the [facility] during the administration of aerosolized bronchodilator. The attending pulmonary physician certifies that he/she has reviewed and interpreted the graphic and numerical data of this pulmonary function study and agrees with the written final report. The lower limit of normal for PaO2 and %HbO2 is age dependent. However, the [facility] Pulmonary Function Laboratory defines hypoxemia as a PaO2 <56 mm Hg or a %HbO2 <89%. Starting on July of 2024 the [facility] Pulmonary Function Laboratory utilizes race neutral GLI Global normative equations. Jonathon Ashraf MD PFT ORDERABLES Final Result * (ABNORMAL) Comprehensive metabolic panel (03/04/2025 2:38 PM CDT) Glucose 87 70 - 99 mg/dL [facility] - 01 BUN 16 8 - 27 mg/dL [facility] - 01 Creatinine, Serum 0.84 0.57 - 1.00 mg/dL [facility] - 01 eGFR 74 >59 mL/min/1.7 3 [facility] - 01 BUN/creat ratio 19 12 - 28 [facility] - 01 Sodium 138 134 - 144 mmol/L [facility] - 01 Potassium, sr 5.3(H) 3.5 - 5.2 mmol/L [facility] - 01 Chloride 99 96 - 106 mmol/L [facility] - 01 CO2 26 20 - 29 mmol/L [facility] - 01 Calcium 9.9 8.7 - 10.3 mg/dL [facility] - 01 Protein, sr 7.4 6.0 - 8.5 g/dL [facility] - 01 Albumin 4.4 3.8 - 4.8 g/dL [facility] - 01 Globulin, Total 3.0 1.5 - 4.5 g/dL [facility] - 01 Bilirubin, Total 0.9 0.0 - 1.2 mg/dL [facility] - 01 Alk phos 89 44 - 121 IU/L [facility] - 01 AST 32 0 - 40 IU/L [facility] - 01 ALT 21 0 - 32 IU/L [facility] - 01 Blood 03/04/2025 2:38 PM CDT 03/04/2025 Narrative [facility] - 03/05/2025 7:09 AM CDT Performed at: - [address] [id number] Distribution Transformer Assembler: Deangelo Vicente PhD, Phone: [phone] Jonathon Ashraf MD LAB BLOOD ORDERABLES Final Res ult [facility] - 01 * OCT, Retina - OU - Both Eyes (03/03/2025 2:09 PM CDT) Anatomical Region Laterality Modality Head Other Narrative 03/03/2025 2:53 PM CDT Right Eye Quality was good. Scan locations included subfoveal. Findings include normal observations. Left Eye Quality was good. Scan locations included subfoveal. Findings include normal observations. Notes Ganglion cell layer (GCL); normal thickness both eyes (OU) Paz Ivory OD OPHTH TOMOGRAPHY Final Res ult * OCT, Optic Nerve - OU - Both Eyes (03/03/2025 2:09 PM CDT) RNFL OS 76 micrometers [facility] RNFL OD 84 micrometers [facility] Anatomical Region Laterality Modality Head Other Narrative 03/03/2025 2:53 PM CDT Right Eye Reliability was good. Temporal thickness was normal. Superior thickness was normal. Nasal thickness was normal. Inferior thickness was normal. Average RNFL thickness 84 micrometers. Left Eye Reliability was good. Temporal thickness was normal. Superior thickness was normal. Nasal thickness was normal. Inferior thickness was normal. Average RNFL thickness 76 micrometers. Notes Right eye (OD) normal Left eye (OS) borderline thin inf wedge Paz Ivory OD OPHTH TOMOGRAPHY Final Res ult * (ABNORMAL) CBC with auto differential (03/03/2025 11:00 AM CDT) [facility] WBC 8.6 3.4 - 10.8 x10E3/uL [facility] - 01 RBC 4.46 3.77 - 5.28 x10E6/uL [facility] - 01 Hgb 13.9 11.1 - 15.9 g/dL [facility] - 01 Hct 42.5 34.0 - 46.6 % [facility] - 01 MCV 95 79 - 97 fL [facility] - 01 MCH 31.2 26.6 - 33.0 pg [facility] - 01 MCHC 32.7 31.5 - 35.7 g/dL [facility] - 01 Rdw 13.1 11.7 - 15.4 % [facility] - 01 Platelets 428 150 - 450 x10E3/uL [facility] - 01 Neutrophils pct 54 Not Estab. % [facility] - 01 Lymphs pct 27 Not Estab. % [facility] - 01 Monocytes pct 11 Not Estab. % [facility] - 01 Eosinophils pct 6 Not Estab. % [facility] - 01 Basophil pct 2 Not Estab. % [facility] - 01 Neutrophil abs 4.7 1.4 - 7.0 x10E3/uL [facility] - 01 Lymphs (Absolute) 2.3 0.7 - 3.1 x10E3/uL [facility] - 01 Monocyte abs 0.9 0.1 - 0.9 x10E3/uL [facility] - 01 Eosinophils, abs 0.5(H) 0.0 - 0.4 x10E3/uL [facility] - 01 Basophils, abs 0.1 0.0 - 0.2 x10E3/uL [facility] - 01 Immature Granulocytes 0 Not Estab. % [facility] - 01 Immature Grans (Abs) 0.0 0.0 - 0.1 x10E3/uL [facility] - 01 Blood 03/03/2025 11:0 0 AM CDT 03/03/2025 Narrative [facility] - 03/04/2025 12:07 AM CDT Performed at: [address] [place], [place] [id number] Distribution Transformer Assembler: Deangelo Vicente PhD, Phone: [phone] us Jonathon Ashraf MD LAB BLOOD ORDERABLES Final Res ult [facility] - 01 * (ABNORMAL) Comprehensive metabolic panel (03/03/2025 11:00 AM CDT) Pathologist [facility] Glucose 91 70 - 99 mg/dL [facility] - 01 BUN 12 8 - 27 mg/dL [facility] - 01 Creatinine, Serum 0.66 0.57 - 1.00 mg/dL [facility] - 01 eGFR 93 >59 mL/min/1.7 3 [facility] - 01 BUN/creat ratio 18 12 - 28 [facility] - 01 Sodium 138 134 - 144 mmol/L [facility] - 01 Potassium, sr 5.6(H) 3.5 - 5.2 mmol/L [facility] - 01 Chloride 99 96 - 106 mmol/L [facility] - 01 CO2 22 20 - 29 mmol/L [facility] - 01 Calcium 10.0 8.7 - 10.3 mg/dL [facility] - 01 Protein, sr 7.5 6.0 - 8.5 g/dL [facility] - 01 Albumin 4.3 3.8 - 4.8 g/dL [facility] - 01 Globulin, Total 3.2 1.5 - 4.5 g/dL [facility] - 01 Bilirubin, Total 1.5(H) 0.0 - 1.2 mg/dL [facility] - 01 Alk phos 82 44 - 121 IU/L [facility] - 01 AST 41(H) 0 - 40 IU/L [facility] - 01 ALT 16 0 - 32 IU/L [facility] - 01 Blood 03/03/2025 11:0 0 AM CDT 03/03/2025 Narrative [facility] - 03/04/2025 1:07 AM CDT Performed at: [facility] - [facility] [address] [place], [place] [id number] Distribution Transformer Assembler: Deangelo Vicente PhD, Phone: [phone] us Jonathon Ashraf MD LAB BLOOD ORDERABLES Final Res ult [facility] - 01 * Pulmonary Function Test - (02/27/2025 9:38 AM CDT) FVC PRE 1.39 L [facility] FVC %PRE PRED 51 % [facility] FEV1 PRE 1.23 L [facility] FEV1 %PRE PRED 58 % [facility] FEV1/FVC PRE 88.4 % [facility] DLCO PRE 8.7 ml/min/mmH g [facility] DLCO %PRE PRED 46 % [facility] Anatomical Region Laterality Modality PFT 02/27/2025 9:12 AM CDT Narrative 02/27/2025 1:46 PM CDT Table formatting from the original result was not included. [facility] Division of Pulmonary & Critical Care Medicine [address] [place] [address]; [place] [facility]; [place] [address]; [phone] Pulmonary Function Laboratory Pulmonary Stress Test Simple/Oxygen Assessment Patient: Jono Cooley Date: 02/27/2025 : 1950 Ht: 64 IN Wt: 166 LBS Time (min) Distance (ft)/ Velez O2 L/M SpO2 HR Ledy* BP FEV1 % Pred Rest: RA 98 84 0 114/69 1.23 58 % Walk/Bike: 1 RA 94 104 0 2 RA 92 108 0.5 3 RA 92 110 0.5 4 RA 91 111 0.5 5 RA 91 112 1 6 min 0 sec RA 91 113 2 Recovery: 1 RA 95 100 0 125/64 1.24 59% 3 RA 99 90 0 *Ledy rate of perceived exertion (1-10 dyspnea scale) Ari, CHEST 2003; 123:1408 Walk Test Summary: Six Minute Walk Distance: 1440 ft Six-minute Walk Work [distance (m) x body wt (kg)]: 65536 kg.m (normal >60,000kg.m) Oxygen required to maintain SpO2 greater than 90% during six minutes of walkin L/M Comments: O2A-0 STOPS Interpretation: Breathing room air, SpO2 is normal at rest and during exercise sufficient to increase pulse, SpO2 falls but remains normoxemic . On this basis, SpO2 is adequate at rest breathing room air and while walking breathing room air. This level of exercise is associated with no significant change of FEV1. By signing this report, the attending pulmonary physician certifies that he/she has personally reviewed and interpreted the graphic and numerical data associated with this pulmonary function study and has reviewed and /or edited a preliminary draft report and agrees with the written final report. PFT performed at:->[facility] Adult PFT Lab- [facility]8D Procedure:->Oxygen Assessment Titration Procedure:->Spirometry Procedure:->DLCO DLCO:->Spirometry Pulmonary Function Test Interpretation SPIROMETRY: The FEV1 to FVC ratio is normal. The FEV1 and FVC are reduced in a pattern suggestive of a restrictive abnormality. The inspiratory loop is appropriate for the expiratory flow abnormality. DLCO: The diffusing capacity is decreased. The diffusing capacity corrected for hemoglobin level (DLCO ADJ) is within normal limits. Impression: There is a moderate restrictive ventilatory defect. However, measurement of lung volumes is suggested to confirm this if clinically indicated. There is a moderate impairment of alveolar gas exchange by DLCO. Compared with most recent study, there has been significant interval improvement of the FEV1 & FVC. The attending pulmonary physician certifies a physician presence in the [facility] Suite during the administration of aerosolized bronchodilator. The attending pulmonary physician certifies that he/she has reviewed and interpreted the graphic and numerical data of this pulmonary function study and agrees with the written final report. The lower limit of normal for PaO2 and %HbO2 is age dependent. However, the [facility] Pulmonary Function Laboratory defines hypoxemia as a PaO2 <56 mm Hg or a %HbO2 <89%. Starting on July of 2024 the [facility] Pulmonary Function Laboratory utilizes race neutral GLI Global normative equations. us Jonathon Ashraf MD PFT ORDERABLES Final Result * Screening Mammogram Bilateral W Valerio (02/16/2025 4:52 PM CDT) Anatomical Region Laterality Modality Breast Bilateral Mammography Impressions 02/16/2025 5:03 PM CDT BI-RADS ATLAS category (overall): 1 - Negative There is no mammographic evidence of malignancy. A 1 year screening mammogram is recommended. The patient has been or will be contacted. We recommend annual screening mammography for women at average risk of breast cancer beginning at age 40, based on guidelines of the [employer] (ACR Practice Parameter for the Performance of Screening and Diagnostic Mammography) and [employer]. For women with and elevated risk of breast cancer, please refer to the ACR Practice Parameter for specific screening recommendations. The patient will be entered into a reminder system with a target due date of 1 year for her next screening exam. Narrative 02/16/2025 5:03 PM CDT Screening Mammogram Bilateral W Valerio: 02/16/25 The study was acquired using full field digital technology and interpreted from soft copy. 2D digital mammographic views, as well as 3D digital tomosynthesis were performed in the CC and MLO projections. CLINICAL: Screening mammogram, encounter for. No relevant medical history has been documented for this patient. History of breast cancer in Neg Hx. No comparisons were made when reading this study. BREAST TISSUE: The breasts are almost entirely fatty. FINDINGS: There is no new suspicious finding in either breast on mammogram. us Self Screening Mammogram IMG MAMMO PROCEDURES Fi nal Result * CT Chest High Resolution WO Contrast (02/06/2025 11:20 AM CDT) Anatomical Region Laterality Modality Chest N/A Computed Tomogra phy 02/06/2025 12:0 3 PM CDT Impressions 02/06/2025 5:31 PM CDT 1. No significant interval change in findings of interstitial lung disease with pattern most suggestive of connective tissue disease related interstitial lung disease versus hypersensitivity pneumonitis. 2. New cluster of peribronchovascular tree-in-bud nodularity in the left lower lobe may represent superimposed aspiration versus an infectious process. Other benign-appearing pulmonary nodules are stable from prior. Dictated by: Yusef Holder M.D. The radiology attending physician has personally reviewed this study, and had reviewed and/or edited this written report and agrees with it. Electronically signed by: Chico Crowley M.D. Narrative 02/06/2025 5:31 PM CDT EXAMINATION: Computed tomography of the chest without intravenous contrast HISTORY: Interstitial lung disease thought to be either hypersensitivity pneumonitis or interstitial pneumonia with autoimmune features. TECHNIQUE: Transaxial computed tomographic images of the chest were obtained without intravenous contrast according to the standard protocol. COMPARISON: 07/06/2024 CT FINDINGS: There are unchanged scattered sub-6 mm pulmonary nodules in both lungs, some of which appear partially calcified. This includes an unchanged 4 mm nodule in the right middle lobe (series 3 image 75), an unchanged 5 mm nodule in the left upper lobe (series 3 image 58), an unchanged 3 mm nodule in the left lower lobe (series 3 image 81), and an unchanged 5 mm nodule in the left lower lung adjacent to the fissure (series 3 image 62). There is been development of a cluster of peribronchovascular tree-in-bud nodules in the left lower lobe, for example at table position -1273.1). There is redemonstration of bilateral reticulation and traction bronchiectasis with bilateral upper lobe involvement, not significantly changed in distribution or severity when compared to the prior exam. There is no definite honeycombing. On expiration phase, there is scattered mild air trapping in both lungs. No pleural effusion, pulmonary edema, pneumonia, or pneumothorax. No supraclavicular, axillary, mediastinal, or hilar lymphadenopathy. Heart size unchanged. No pericardial effusion. There is coronary artery atherosclerosis. There is a small hiatal hernia. There is cholelithiasis without acute cholecystitis. No other acute findings in the imaged upper abdomen. No suspicious osseous lesion. Left shoulder arthroplasty. Partially imaged cervical fusion. Procedure Note Chico Crowley MD PhD - 02/06/2025 EXAMINATION: Computed tomography of the chest without intravenous contrast HISTORY: Interstitial lung disease thought to be either hypersensitivity pneumonitis or interstitial pneumonia with autoimmune features. TECHNIQUE: Transaxial computed tomographic images of the chest were obtained without intravenous contrast according to the standard protocol. COMPARISON: 07/06/2024 CT FINDINGS: There are unchanged scattered sub-6 mm pulmonary nodules in both lungs, some of which appear partially calcified. This includes an unchanged 4 mm nodule in the right middle lobe (series 3 image 75), an unchanged 5 mm nodule in the left upper lobe (series 3 image 58), an unchanged 3 mm nodule in the left lower lobe (series 3 image 81), and an unchanged 5 mm nodule in the left lower lung adjacent to the fissure (series 3 image 62). There is been development of a cluster of peribronchovascular tree-in-bud nodules in the left lower lobe, for example at table position -1273.1). There is redemonstration of bilateral reticulation and traction bronchiectasis with bilateral upper lobe involvement, not significantly changed in distribution or severity when compared to the prior exam. There is no definite honeycombing. On expiration phase, there is scattered mild air trapping in both lungs. No pleural effusion, pulmonary edema, pneumonia, or pneumothorax. No supraclavicular, axillary, mediastinal, or hilar lymphadenopathy. Heart size unchanged. No pericardial effusion. There is coronary artery atherosclerosis. There is a small hiatal hernia. There is cholelithiasis without acute cholecystitis. No other acute findings in the imaged upper abdomen. No suspicious osseous lesion. Left shoulder arthroplasty. Partially imaged cervical fusion. IMPRESSION: 1. No significant interval change in findings of interstitial lung disease with pattern most suggestive of connective tissue disease related interstitial lung disease versus hypersensitivity pneumonitis. 2. New cluster of peribronchovascular tree-in-bud nodularity in the left lower lobe may represent superimposed aspiration versus an infectious process. Other benign-appearing pulmonary nodules are stable from prior. Dictated by: Yusef Holder M.D. The radiology attending physician has personally reviewed this study, and had reviewed and/or edited this written report and agrees with it. Electronically signed by: Chico Crowley M.D. Jonathon Ashraf MD [facility] CT PROCEDURES Final Result * Respiratory pathogen panel Nasopharyngeal (02/03/2025 2:31 PM CDT) Influenza A RNA Not Detected Not Detected Influenza B RNA Not Detected Not Detected [facility] RSV RNA Not Detected Not Detected [facility] COVID-19 RNA Not Detected Not Detected [facility] Coronavirus 229E RNA Not Detected Not Detected [facility] Coronavirus HKU1 RNA Not Detected Not Detected [facility] Coronavirus NL63 RNA Not Detected Not Detected [facility] Coronavirus OC43 RNA Not Detected Not Detected [facility] Adenovirus DNA Not Detected Not Detected [facility] Metapneumovirus RNA Not Detected Not Detected [facility] Rhinovirus/Enterov irus RNA Not Detected Not Detected [facility] Parainfluenza 1 RNA Not Detected Not Detected [facility] Parainfluenza 2 RNA Not Detected Not Detected [facility] Parainfluenza 3 RNA Not Detected Not Detected [facility] Parainfluenza 4 RNA Not Detected Not Detected [facility] B. pertussis DNA Not Detected Not Detected [facility] B. parapertussis DNA Not Detected Not Detected [facility] C. pneumoniae DNA Not Detected Not Detected [facility] M. pneumoniae DNA Not Detected Not Detected [facility] Nasopharyngeal 02/03/2025 2: 31 PM CDT 02/03/2025 3:35 PM CDT Narrative [facility] - 02/03/2025 4:40 PM CDT Is the Patient experiencing symptoms consistent with COVID?->Unknown Surveillance testing for transplant patient?->No Interpretive Data The [employer] FilmArray Respiratory Panel (RP2.1) assay is a multiplexed real-time PCR based nucleic acid test capable of simultaneous qualitative detection and identification of multiple respiratory viral and bacterial nucleic acids, including SARS Coronavirus 2 (the causative agent of COVID-19). The following bacteria, viruses and virus subtypes can be identified using the FilmArray RP2.1 assay: Bordetella pertussis, Bordetella parapertussis, Chlamydia pneumoniae, Mycoplasma pneumoniae, Adenovirus, SARS Coronavirus 2, seasonal coronaviruses (Coronavirus HKU1, Coronavirus NL63, Coronavirus 229E, and Coronavirus OC43), Influenza A, Influenza A subtype H1, Influenza A subtype H3, Influenza A subtype 2009 H1, Influenza B, Metapneumovirus, Parainfluenza 1, Parainfluenza 2, Parainfluenza 3, Parainfluenza 4, RSV, Rhinovirus/Enterovirus. Due to the genetic similarity between human Rhinovirus and Enterovirus, the FilmArray RP2.1 assay cannot reliably differentiate them. Coronavirus OC43 may cross-react with some isolates of Coronavirus HKU1. A dual positive result may be due to cross-reactivity or may indicate a co- infection. The detection and identification of specific viral and bacterial nucleic acids from individuals exhibiting signs and symptoms of a respiratory infection aids in the diagnosis of respiratory infection if used in conjunction with other clinical and epidemiological information. The results of this test should not be used as the sole basis for diagnosis, treatment, or other management decisions. Negative results in the setting of a respiratory illness may be due to infection with pathogens that are not detected by this test. Positive results do not rule out infection/co-infection with other organisms. The agent(s) detected by the FilmArray RP2.1 may not be the definite cause of disease. Additional testing (lab, imaging, etc.) may be necessary when evaluating a patient with possible respiratory tract infection. The FilmArray RP2.1 assay has FDA clearance for testing of PRODUCT DEVELOPMENT CHEMIST swabs. The performance of additional specimen types has been assessed by the performing laboratory. The performance characteristics of this assay have been determined by [facility] Molecular Infectious Disease Laboratory. Current interpretive data was last revised on 22. us Cecy Tavarez PRODUCT DEVELOPMENT CHEMIST LAB MICROBIOLOGY - GENERAL ORD ERABLES Final Result [facility] Department [place] [address] * Pulmonary Function Test - (02/03/2025 10:33 AM CDT) [facility] FVC PRE 1.15 L [facility] FVC %PRE PRED 42 % [facility] FEV1 PRE 1.00 L [facility] FEV1 %PRE PRED 47 % [facility] FEV1/FVC PRE 86.8 % [facility] Anatomical Region Laterality Modality PFT 02/03/2025 10:2 6 AM CDT Narrative 02/04/2025 11:16 AM CDT PFT performed at:->[facility] Adult PFT Lab- [id number] Procedure:->Spirometry Pulmonary Function Test Interpretation SPIROMETRY: There is a decrease in expiratory airflow at high lung volumes. There is a decrease in expiratory airflow at middle lung volumes. The FEV1 to FVC ratio is normal. The FEV1 and FVC are reduced in a pattern suggestive of a restrictive abnormality. The inspiratory loop is appropriate for the expiratory flow abnormality. Impression: There is a severe restrictive ventilatory defect. However, measurement of lung volumes is suggested to confirm this if clinically indicated. Compared with most recent study, there has been significant interval worsening of the restrictive ventilatory defect. The attending pulmonary physician certifies a physician presence in the [facility] during the administration of aerosolized bronchodilator. The attending pulmonary physician certifies that he/she has reviewed and interpreted the graphic and numerical data of this pulmonary function study and agrees with the written final report. The lower limit of normal for PaO2 and %HbO2 is age dependent. However, the [facility] Pulmonary Function Laboratory defines hypoxemia as a PaO2 <56 mm Hg or a %HbO2 <89%. Starting on July of 2024 the [facility] Pulmonary Function Laboratory utilizes race neutral GLI Global normative equations. us Jonathon Ashraf MD PFT ORDERABLES Final Result * XR Chest Pa Lateral 2 Views (02/03/2025 10:13 AM CDT) Anatomical Region Laterality Modality Body, Chest N/A Computed Radiogr aphy 02/03/2025 1:29 PM CDT Impressions 02/03/2025 1:29 PM CDT Prior chest radiograph from 07/06/2024. Status post anterior cervical fusion and left shoulder replacement. No pulmonary consolidation, effusions, or pneumothorax visualized. Normal cardiomediastinal silhouette. Diffuse interstitial reticular opacities visualized bilaterally with slightly diminished lung volumes. These abnormalities are consistent with prior radiograph and likely sequela of known interstitial lung disease. No radiographic evidence of acute or subacute infectious process visualized. Electronically signed by: Rebekah Locke M.D. Narrative 02/03/2025 1:29 PM CDT EXAMINATION: 2 view chest radiograph Procedure Note Rebekah Locke MD - 02/03/2025 EXAMINATION: 2 view chest radiograph IMPRESSION: Prior chest radiograph from 07/06/2024. Status post anterior cervical fusion and left shoulder replacement. No pulmonary consolidation, effusions, or pneumothorax visualized. Normal cardiomediastinal silhouette. Diffuse interstitial reticular opacities visualized bilaterally with slightly diminished lung volumes. These abnormalities are consistent with prior radiograph and likely sequela of known interstitial lung disease. No radiographic evidence of acute or subacute infectious process visualized. Electronically signed by: Rebekah Locke M.D. us Jonathon Ashraf MD IMG XR PROCEDURES Final Result * Influenza A/B, RSV, and COVID-19 PCR Nasopharyngeal (01/25/2025 12:15 PM CDT) COVID-19 RNA Negative Negative Influenza A RNA Negative Negative [facility] Influenza B RNA Negative Negative [facility] RSV RNA Negative Negative [facility] Comment: Testing performed by [facility]. This test is performed using the [employer] Xpert Xpress CoV-2/Flu/RSV plus assay. This is a multiplex, real-time reverse transcriptase PCR assay intended for the qualitative detection of nucleic acid from SARS-CoV-2, influenza A, influenza B, and respiratory syncytial virus. This assay has been cleared by the [place] Food and Drug administration. The performance characteristics have been verified by the [facility]. Results must be considered in the clinical context, and a negative result does not rule out infection. Interpretive Data last revised 2023 Nasopharyngeal 01/25/2025 12 :15 PM CDT 01/25/2025 12:23 PM CDT Narrative [facility] - 01/25/2025 1:08 PM CDT Is the Patient experiencing symptoms consistent with COVID?->Yes us Josue Doan MD LAB MICROBIOLOGY - GENERA L ORDERABLES Final Result [facility] [id number] [facility]. Department [place] [address] * XR Finger Thumb Right Minimum 2 Views (01/22/2025 8:43 AM CDT) Anatomical Region Laterality Modality Upper Extremities, Hand, Fingers Right Computed Radiography 01/26/2025 1:45 PM CDT Narrative 01/26/2025 1:46 PM CDT EXAM DESCRIPTION: 1. XR FINGER THUMB RIGHT MINIMUM 2 VIEWS REASON FOR STUDY: pain Thumb pain for 2.5 months, no injury FINDINGS: Three views submitted without comparison. No acute fracture. Ulnar positive variance is present. 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 1st through 3rd metacarpophalangeal and polyarticular interphalangeal joint osteoarthritis. IMPRESSION: 1. 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 THIS IS AN ELECTRONICALLY VERIFIED FINAL REPORT 01/26/2025 1:46 PM - Electronically signed by Eric Carvajal M.D. T: Report ID: [id number] Reading Location: [id number] Procedure Note Eric Carvajal MD - 01/26/2025 EXAM DESCRIPTION: 1. XR FINGER THUMB RIGHT MINIMUM 2 VIEWS REASON FOR STUDY: pain Thumb pain for 2.5 months, no injury FINDINGS: Three views submitted without comparison. No acute fracture. Ulnar positive variance is present. Mild triscapheand basal thumb joint osteoarthritis. 1st through 3rd metacarpophalangeal and polyarticular interphalangeal joint osteoarthritis. IMPRESSION: 1. 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 THIS IS AN ELECTRONICALLY VERIFIED FINAL REPORT 01/26/2025 1:46 PM - Electronically signed by Eric Carvajal M.D. T: Report ID: [id number] Reading Location: [id number] us Bren Clark MD IMG XR PROCEDURES Final R esult * OH INJECTION 1 TENDON SHEATH/LIGAMENT APONEUROSIS (01/22/2025 8:30 AM CDT) Narrative Bren Clark MD - 01/22/2025 8:30 AM CDT Bren Clark MD 01/27/2025 8:12 AM Hand / Upper Extremity Arthrocentesis: R thumb A1 Performed by: Bren Clark MD Authorized by: Bren Clark MD Consent Given by: Patient Site marked: the procedure site was marked Timeout: prior to procedure the correct patient, procedure, and site was verified Verbal consent obtained?: Yes Written consent obtained?: No Indications: Pain Condition: trigger finger Location: Thumb Site: R thumb A1 Prep: patient was prepped and draped in usual sterile fashion Prep: patient was prepped using a clean technique Medications Right Thumb Injection: 1 mL lidocaine 10 mg/mL (1 %); 40 mg triamcinolone 40 mg/mL Patient tolerance: Patient tolerated the procedure well with no immediate complications us Bren Clark MD IN CLINIC/BEDSIDE ORDERAB LES Final Result * (ABNORMAL) Comprehensive metabolic panel (01/21/2025 9:32 AM CDT) Glucose 101(H) 70 - 99 mg/dL [facility] - 01 BUN 12 8 - 27 mg/dL [facility] - 01 Creatinine, Serum 0.76 0.57 - 1.00 mg/dL [facility] - 01 eGFR 83 >59 mL/min/1.7 3 [facility] - 01 BUN/creat ratio 16 12 - 28 [facility] - 01 Sodium 136 134 - 144 mmol/L [facility] - 01 Potassium, sr 4.6 3.5 - 5.2 mmol/L [facility] - 01 Chloride 100 96 - 106 mmol/L [facility] - 01 CO2 21 20 - 29 mmol/L [facility] - 01 Calcium 9.8 8.7 - 10.3 mg/dL [facility] - 01 Protein, sr 7.6 6.0 - 8.5 g/dL [facility] - 01 Albumin 4.5 3.8 - 4.8 g/dL [facility] - 01 Globulin, Total 3.1 1.5 - 4.5 g/dL [facility] - 01 Bilirubin, Total 1.2 0.0 - 1.2 mg/dL [facility] - 01 Alk phos 87 44 - 121 IU/L [facility] - 01 AST 32 0 - 40 IU/L [facility] - 01 ALT 22 0 - 32 IU/L [facility] - 01 Blood 01/21/2025 9:32 AM CDT 01/21/2025 Narrative [facility] - 01/22/2025 2:08 AM CDT Performed at: 01 - [facility] [address] [id number] Distribution Transformer Assembler: Deangelo Vicente PhD, Phone: [phone] us Jonathon Ashraf MD LAB BLOOD ORDERABLES Final Res ult [facility] - 01 * (ABNORMAL) CBC with auto differential (01/21/2025 9:31 AM CDT) Pathologist [facility] WBC 6.9 3.4 - 10.8 x10E3/uL [facility] - 01 RBC 4.82 3.77 - 5.28 x10E6/uL [facility] - 01 Hgb 14.7 11.1 - 15.9 g/dL [facility] - 01 Hct 45.9 34.0 - 46.6 % [facility] - 01 MCV 95 79 - 97 fL [facility] - 01 MCH 30.5 26.6 - 33.0 pg [facility] - 01 MCHC 32.0 31.5 - 35.7 g/dL [facility] - 01 Rdw 13.4 11.7 - 15.4 % [facility] - 01 Platelets 476(H) 150 - 450 x10E3/uL [facility] - 01 Neutrophils pct 52 Not Estab. % [facility] - 01 Lymphs pct 25 Not Estab. % [facility] - 01 Monocytes pct 15 Not Estab. % [facility] - 01 Eosinophils pct 6 Not Estab. % [facility] - 01 Basophil pct 2 Not Estab. % [facility] - 01 Neutrophil abs 3.6 1.4 - 7.0 x10E3/uL [facility] - 01 Lymphs (Absolute) 1.7 0.7 - 3.1 x10E3/uL [facility] - 01 Monocyte abs 1.0(H) 0.1 - 0.9 x10E3/uL [facility] - 01 Eosinophils, abs 0.4 0.0 - 0.4 x10E3/uL [facility] - 01 Basophils, abs 0.1 0.0 - 0.2 x10E3/uL [facility] - 01 Immature Granulocytes 0 Not Estab. % [facility] - 01 Immature Grans (Abs) 0.0 0.0 - 0.1 x10E3/uL [facility] - 01 Blood 01/21/2025 9:31 AM CDT 01/21/2025 Narrative [facility] - 01/22/2025 12:07 AM CDT Performed at: - [facility] [address] [id number] Distribution Transformer Assembler: Deangelo Vicente PhD, Phone: [phone] us Jonathon Ashraf MD LAB BLOOD ORDERABLES Final Res ult [facility] - 01 * XR Shoulder Left 2 or More Views (01/06/2025 9:58 AM CDT) Anatomical Region Laterality Modality Upper Extremities, Shoulder Left Comp uted Radiography 01/06/2025 10:1 5 AM CDT Impressions 01/06/2025 10:15 AM CDT 1. Unchanged reverse [id number] left total shoulder arthroplasty in expected position. Electronically signed by: Tim Martinez MD Narrative 01/06/2025 10:15 AM CDT EXAMINATION: XR SHOULDER LEFT 2 OR MORE VIEWS HISTORY: Left shoulder pain FINDINGS: 5 radiographs of the left shoulder are compared to 02/26/2024. Unchanged reverse [id number] left total shoulder arthroplasty in expected position. No acute periprosthetic fracture or osteolysis. There is moderate acromioclavicular joint osteoarthritis. Procedure Note Mandy Martinez MD - 01/06/2025 EXAMINATION: XR SHOULDER LEFT 2 OR MORE VIEWS HISTORY: Left shoulder pain FINDINGS: 5 radiographs of the left shoulder are compared to 02/26/2024. Unchanged reverse [id number] left total shoulder arthroplasty in expected position. No acute periprosthetic fracture or osteolysis. There is moderate acromioclavicular joint osteoarthritis. IMPRESSION: 1. Unchanged reverse [id number] left total shoulder arthroplasty in expected position. Electronically signed by: Tim Martinez MD Boy Denise MD IMG XR PROCEDURES Fin al Result * Dexa TBS Axial Skeleton Bone Density 1 or more sites (12/01/2024 1:21 PM CDT) Anatomical Region Laterality Modality Wrist, Body N/A Radiographic Le ging Narrative 12/01/2024 1:27 PM CDT Patient Name: Jono Cooley Date of : 1950 Date of scan: 12/01/2024 Bone mineral density was performed on a Novalys Discovery Densitometer. Based on machine cross-calibration and precision studies the least significant changes of this densitometer is 0.024 g/cm2 at the spine, 0.020 g/cm2 at the total proximal femur, and 0.014g/cm2 at the forearm. HISTORY: This is a 74 y.o. postmenopausal female with a history of osteoporosis and vitamin D deficiency. She reports that she has never smoked. She has never used smokeless tobacco. Currently on treatment with vitamin D, previously treated with alendronate (Fosamax), ibandronate (Boniva), zoledronic acid (Reclast), and raloxifene (Evista), and current complaint of back pain. INDICATIONS: Menopause status, vitamin D deficiency, and history of osteoporosis. FINDINGS: BONE MINERAL DENSITY OF THE LUMBAR SPINE Bone Mineral Density (BMD) of the lumbar spine was measured from L1-L4 and the average density was calculated to be 1.075 gm/cm2. This corresponds to a T-score (standard deviations from the mean of young adults) of 0.3. When compared to the previous study of 11/19/2023 there has been no significant changes in bone density. BONE MINERAL DENSITY OF THE PROXIMAL FEMUR Bone Mineral Density (BMD) of the left hip total was found to be 0.913 gm/cm2. This corresponds to a T-score standard deviations from the mean of young adults of -0.2. Femoral neck is 0.606 gm/cm2 with a T-score (standard deviations from the mean of young adults) of -2.2. When compared to the previous study of 11/19/2023 there has been no significant changes in bone density. BONE MINERAL DENSITY OF THE FOREARM Bone Mineral density (BMD) of the left proximal 1/3 of the radius measures 0.531 gm/cm2. This corresponds to a T-score (standard deviations from the mean of young adults) of -2.7. When compared to the previous study of 11/19/2023 there has been no significant changes in bone density. A forearm bone density study was performed in addition to the routine study due to department forearm protocol. SUMMARY: Bone mineral density shows evidence of osteoporosis and marked increase risk of fracture. There has been no significant changes in bone density since previous measurement. The lumbar spine Trabecular Bone Score is 1.197 which suggests degraded bone microarchitecture compared to the general population. Final decisions regarding diagnostic or therapeutic recommendations should include BMD, TBS, additional clinical risk factors as well the clinical context of the patient. Please see attached TBS results for further details. ADDITIONAL COMMENTS: Postmenopausal Women and Men Over 50: Diagnostic criteria: Osteoporosis: BMD at or below -2.5 T-score; Osteopenia (low bone mass): BMD between -1.0 and -2.5 T-score. If the patient has a history of a fragility fracture, a fracture that occurred with trauma equivalent to a fall from a standing position or less, then the diagnosis is osteoporosis regardless of bone density. The history and data sections of the bone mineral density scan were prepared by Alis Vincent(Bhavesh)(Dharmesh)(BD) CBDT who is accredited by the International Society of Clinical Densitometry. The overall patient assessment and scan interpretation were performed by Corey Albright M.D. who is certified by the International Society of Clinical Densitometry. [id number] us Corey Albright MD IMG DXA PROCEDURES Final Result from Last 3 Months or Most Recently Relevant to Health Maintenance [place] [address] [facility] [address] [place] [address] [employer] [facility] MEDICARE [facility] Advance Directives For more information, please contact: [phone] Documents on File Type Date Recorded Patient Tarper Expl anation Power of Intervention Specialist 11/06/2023 2:24 PM * Full Code (Latest Code Status on File) Date Activated Date Inactivated Comments 11/21/2023 9:50 AM 11/21/2023 6:33 PM Care Teams Power Sewing Machine Operator Relationship Specialty Start Date End Date Pop Etienne MD [address] [address] PCP - General 11/10/16 Luisa Kingsley RN Registered Nurse Pulmonary Disease 06/05/22 Sergio Cortez MD [address] [facility] [address] [address] Consulting Physician Obstetrics and Gynecology 10/04/22 Jonathon Ashraf MD [address] [facility] [address] [place] [address] Consulting Physician Pulmonary Disease 02/03/25
--- OUTSIDE RECORDS SUMMARY | 2025-03-20 09:32 | XMS_ITS | Encounter Summary ---
Author Organization [facility] Address [address] [place] [address] Phone Care Team Providers Care Picture Painter Name Role Phone Pop Etienne MD Primary Care Provider [phone] Luisa Kingsley RN Unavailable UnavailSergio Collazo MD Unavailable [phone] Jonathon Ashraf MD Unavailable [phone] Encounter Details Date Type Department Care Team (Latest Contact Info) Description 08/29/2017 Orders Only [facility] CONVERSION Scanning, Provider Social History Tobacco Use Types Packs/Day Years Used Date Smoking Tobacco: Never Assessed Comments Unknown Sex and Gender Information Value Date Recorded Sex Assigned at Not on file Legal Sex Female 11:54 PM DOG LICENSER Gender Identity Not on file Sexual Orientation Not on file documented as of this encounter Plan of Treatment Not on file documented as of this encounter Procedures Procedure Name Priority Date/Time Associated Diagnosis Comments PULMONARY FUNCTION TEST (PFT) 08/29/2017 1:27 PM DOG LICENSER documented in this encounter Results * PULMONARY FUNCTION TEST (PFT) (08/29/2017 1:27 PM DOG LICENSER) Anatomical Region Laterality Modality PFT us Provider Scanning PFT ORDERABLES Final Result documented in this encounter Visit Diagnoses Not on filedocumented in this encounter Additional Health Concerns Infection Onset Date Last Indicated Resolved Time COVID: Suspected 07/06/2024 07/06/2024 07/06/2024 1:16 PM DOG LICENSER COVID: Suspected 01/25/2025 01/25/2025 01/25/2025 1:09 PM CDT COVID: Suspected 02/03/2025 02/03/2025 02/03/2025 4:41 PM CDT documented as of this encounter Care Teams Picture Painter Relationship Specialty Start Date End Date Pop Etienne MD [address] [address] PCP - General 11/10/16 Luisa Kingsley, RN Registered Nurse Pulmonary Disease 06/05/22 Sergio Cortez MD [address] [address] Consulting Physician Obstetrics and Gynecology 10/04/22 Jonathon Ashraf MD [address] [facility] 8 [address] IM PUL[place]ARY [place] [address] Consulting Physician Pulmonary Disease 02/03/25 documented as of this encounter
--- OUTSIDE RECORDS SUMMARY | 2025-03-20 09:32 | XMS_ITS | Encounter Summary ---
Author Organization [facility] Address [address] [place] [address] Phone Care Team Providers Care Curbing Stonecutter Name Role Phone Pop Etienne MD Primary Care Provider [phone] Luisa Kingsley RN Unavailable UnavailSergio Collazo MD Unavailable [phone] Jonathon Ashraf MD Unavailable [phone] Encounter Details Date Type Department Care Team (Late st Contact Info) Description 12/20/2016 Orders Only [facility] ProviderCherelle MD [address] [place] [id number] Social History Tobacco Use Types Packs/Day Years Used Date Smoking Tobacco: Never Assessed Comments Unknown Sex and Gender Information Value Date Recorded Sex Assigned at Not on file Legal Sex Female 11:54 PM DIRECTOR CHANNEL Gender Identity Not on file Sexual Orientation Not on file documented as of this encounter Plan of Treatment Not on file documented as of this encounter Procedures Procedure Name Priority Date/Time Associated Diagnosis Comments GENERAL RADIOLOGY REPORT 12/20/2016 GENERAL RADIOLOGY REPORT 12/20/2016 documented in this encounter Results * GENERAL RADIOLOGY REPORT (12/20/2016) Anatomical Region Laterality Modality Radiographic Le ging Narrative 12/20/2016 Ordered by an unspecified provider. Historical Provider MD MONGE XR PROCEDURES Final R esult * GENERAL RADIOLOGY REPORT (12/20/2016) Anatomical Region Laterality Modality Radiographic Le ging Narrative 12/20/2016 Ordered by an unspecified provider. us Historical Provider MD MONGE XR PROCEDURES Final R esult documented in this encounter Visit Diagnoses Not on filedocumented in this encounter Additional Health Concerns Infection Onset Date Last Indicated Resolved Time COVID: Suspected 07/06/2024 07/06/2024 07/06/2024 1:16 PM DIRECTOR CHANNEL COVID: Suspected 01/25/2025 01/25/2025 01/25/2025 1:09 PM CDT COVID: Suspected 02/03/2025 02/03/2025 02/03/2025 4:41 PM CDT documented as of this encounter Care Teams Curbing Stonecutter Relationship Specialty Start Date End Date Pop Etienne MD [address] [address] PCP - General 11/10/16 Luisa Kingsley, RN Registered Nurse Pulmonary Disease 06/05/22 Sergio Cortez MD [facility] [address] [address] Consulting Physician Obstetrics and Gynecology 10/04/22 Jonathon Ashraf MD [address] [facility] 8 DIV IM P[place]ARY [place] [address] Consulting Physician Pulmonary Disease 02/03/25 documented as of this encounter
--- NOTE | 2025-03-20 09:33 | ECG_ITS ---
Test Date: 2025-03-20 09:46:32 Measurements Intervals [place] Rate: 72 P: 48 ID: [id number] QRS: 27 QRSD: 86 T: 44 QT: 367 QTc: 404 Interpretive Statements SINUS RHYTHM CONSIDER INFERIOR INFARCT, AGE INDETERMINATE BASELINE ARTIFACT- I, II, III, AVR, AVL, AVF ABNORMAL ECG No previous ECG available for comparison Electronically Signed On 03-20-2025 09:52:21 CDT by Shahzad Zaragoza D.O.
== END 2025-03-20 09:27 | disposition home or self-care (01) ==
PROVIDERS: PCP Family Medicine; Visit Provider Family Medicine
DX: R07.9 Chest pain, unspecified (principal); R94.31 Abnormal electrocardiogram [ECG] [EKG]
CPT/HCPCS: 93005